=== PATIENT | male | born 1990 | race Caucasian/White ===

== ENCOUNTER 2017-05-08 10:12 | Emergency (ER) | payer MEDICAID ==
[2017-05-08] MEDS: NS 1,000 ML IV (10:48)
[2017-05-08] MEDS: KETOROLAC 30 MG/ML VIAL (J1885) IV (10:49)
[2017-05-08] MEDS: ONDANSETRON 4MG/2ML VIAL (J2405) IV (10:49)
[2017-05-08 10:53] LABS: BASO % 0.3 % (0.0-1.0); EOS # 0.1 10^3/uL (0.0-0.50); EOS % 1.2 % (0.0-3.0); HEMATOCRIT 42.7 % (42.0-52.0); HEMOGLOBIN 13.7 g/dl (14.0-18.0); IMMATURE GRANULOCYTE # 0.1 10^3/uL (0-0); IMMATURE GRANULOCYTE % 0.6 % (0-0); LYMPH # 2.4 10^3/uL (1.5-6.5); LYMPH % 21.1 % (24.0-44.0); MEAN CORPUSCULAR HEMOGLOBIN 26.3 pg (27.0-33.0); MEAN CORPUSCULAR HGB CONC 32.1 g/dl (32.0-36.5); MONO # 0.7 10^3/uL (0.0-0.8); MONO % 6.5 % (0.0-5.0); NEUTROPHILS # 7.9 10^3/uL (1.8-7.7); NEUTROPHILS % 70.3 % (36.0-66.0); PLATELET COUNT, AUTOMATED 210 10^3/uL (150-450); RED BLOOD COUNT 5.21 10^6/uL (4.30-6.10); RED CELL DISTRIBUTION WIDTH 13.2 % (11.5-14.5); WHITE BLOOD COUNT 11.3 10^3/uL (4.0-10.0)
[2017-05-08 10:58] LABS: KETONE, URINE AUTO RFX TRACE mg/dL (NEGATIVE); LEUKOCYTE ESTERASE UR AUTO RFX TRACE (NEGATIVE); MUCUS, URINE RFX SMALL (NEGATIVE); NITRITE, URINE AUTO RFX NEGATIVE (NEGATIVE); RBC, URINE AUTO RFX 9 /HPF (0-3); SPECIFIC GRAVITY UR AUTO RFX 1.018 (1.002-1.035); SQUAM EPITHELIAL CELL UR AURFX 0 /HPF (0-6); WBC, URINE AUTO RFX 31 /HPF (0-3)
[2017-05-08 11:17] LABS: ALBUMIN 4.6 GM/DL (3.2-5.2); ALBUMIN/GLOBULIN RATIO 1.39 (1.00-1.93); ALKALINE PHOSPHATASE 77 U/L (45-117); ALT/SGPT 50 U/L (12-78); AMYLASE 62 U/L (25-115); ANION GAP 7 MEQ/L (8-16); AST/SGOT 19 U/L (7-37); BILIRUBIN,DIRECT 0.1 MG/DL (0.0-0.2); BILIRUBIN,TOTAL 0.4 MG/DL (0.2-1.0); BLOOD UREA NITROGEN 16 MG/DL (7-18); CALCIUM LEVEL 9.1 MG/DL (8.5-10.1); CARBON DIOXIDE LEVEL 29 MEQ/L (21-32); CHLORIDE LEVEL 108 MEQ/L (98-107); CREATININE FOR GFR 1.06 MG/DL (0.70-1.30); GLOMERULAR FILTRATION RATE > 60.0 (>60); GLUCOSE, FASTING 139 MG/DL (70-105); LIPASE 132 U/L (73-393); POTASSIUM SERUM 3.6 MEQ/L (3.5-5.1); SODIUM LEVEL 144 MEQ/L (136-145); TOTAL PROTEIN 7.9 GM/DL (6.4-8.2)
[2017-05-08] MEDS ORDERED: ISOVUE-370 76% 100ML VIAL (Q9967) As Ordered (11:20)
== END 2017-05-08 12:31 | disposition home or self-care (01) ==
LOC: M ED 10:12
DX: N20.1 Calculus of ureter (principal); F90.9 Attention-deficit hyperactivity disorder, unspecified type; Z79.899 Other long term (current) drug therapy
CPT/HCPCS: J2405

== ENCOUNTER → 2017-05-12 | Outpatient (REF) | payer MEDICAID ==
[2017-05-12 17:59] LABS: APPEARANCE, URINE CLEAR (CLEAR); BACTERIA, URINE AUTO NEGATIVE (NEGATIVE); BILIRUBIN, URINE AUTO NEGATIVE (NEGATIVE); BLOOD, URINE BLOOD NEGATIVE (NEGATIVE); CALCIUM OXALATE CRYSTALS SMALL; COLOR, URINE YELLOW (YELLOW); GLUCOSE, URINE (UA) AUTO NEGATIVE (NEGATIVE); KETONE, URINE AUTO NEGATIVE (NEGATIVE); LEUKOCYTE ESTERASE, URINE AUTO NEGATIVE (NEGATIVE); MUCUS, URINE SMALL (NEGATIVE); NITRITE, URINE AUTO NEGATIVE (NEGATIVE); PROTEIN, URINE AUTO NEGATIVE (NEGATIVE); RBC, URINE AUTO 1 /HPF (0-3); SPECIFIC GRAVITY URINE AUTO 1.021 (1.002-1.035); SQUAMOUS EPITHELIAL CELL UR AU 0 /HPF (0-6); WBC, URINE AUTO 0 /HPF (0-3)
== END ==
LOC: M SMT 17:04
DX: N20.0 Calculus of kidney (principal)

== ENCOUNTER 2017-10-01 10:35 | Emergency (ER) | payer MEDICAID | END 2017-10-01 12:14 | disposition home or self-care (01) | LOC: M ED 10:35 | DX: S06.0X0A Concussion without loss of consciousness, initial encounter (principal); S10.93XA Contusion of unspecified part of neck, initial encounter; W10.8XXA Fall (on) (from) other stairs and steps, initial encounter; Y92.098 Other place in other non-institutional residence as the place of occurrence of the external cause; F90.9 Attention-deficit hyperactivity disorder, unspecified type; Z79.899 Other long term (current) drug therapy | CPT/HCPCS: 70450 ==

== ENCOUNTER 2018-01-01 12:10 | Emergency (ER) | payer MEDICAID | END 2018-01-01 14:09 | disposition home or self-care (01) | LOC: M ED 12:10 | DX: J20.9 Acute bronchitis, unspecified (principal); F90.9 Attention-deficit hyperactivity disorder, unspecified type; Z91.048 Other nonmedicinal substance allergy status; Z79.899 Other long term (current) drug therapy | CPT/HCPCS: 71046 ==

== ENCOUNTER 2019-02-28 19:50 | Emergency (ER) | payer MEDICAID, OTHER ==
[~2019-02-28] VITALS: Ht 180.3 cm; Wt 76.4 kg
[2019-02-28 19:50] VITALS: BP 154/88
[~2019-02-28 19:50] MED LIST: FLUO20CA8 PO; HYDR-3713 PO; IBUPOTC PO; LORA5SOL12 PO; VENTAER INH; ZITHTAB PO; ZOFR4TAB14 PO
[2019-02-28] MEDS ORDERED: ONDANSETRON 4MG/2ML VIAL (J2405) IV ONE (20:45)
[2019-02-28] MEDS ORDERED: KETOROLAC 30 MG/ML VIAL (J1885) IV ONE (20:45)
[2019-02-28 20:55] LABS: BASO % 0.2 % (0.0-1.0); EOS # 0.1 10^3/uL (0.0-0.5); EOS % 0.7 % (0.0-3.0); HEMATOCRIT 42.7 % (42.0-52.0); HEMOGLOBIN 13.9 g/dl (13.5-17.5); LYMPH # 2.3 10^3/uL (1.5-5.0); LYMPH % 16.1 % (24.0-44.0); MEAN CORPUSCULAR HEMOGLOBIN 27.3 pg (27.0-33.0); MEAN CORPUSCULAR HGB CONC 32.6 g/dl (32.0-36.5); MEAN CORPUSCULAR VOLUME 83.7 fl (80.0-96.0); MONO # 0.7 10^3/uL (0.0-0.8); MONO % 4.9 % (0.0-5.0); NEUTROPHILS % 77.3 % (36.0-66.0); PLATELET COUNT, AUTOMATED 219 10^3/uL (150-450); WHITE BLOOD COUNT 14.2 10^3/uL (4.0-10.0)
[2019-02-28 21:54] LABS: ALBUMIN 4.6 GM/DL (3.2-5.2); ALT/SGPT 38 U/L (12-78); BILIRUBIN,DIRECT 0.1 MG/DL (0.0-0.2); BILIRUBIN,TOTAL 0.3 MG/DL (0.2-1.0); BLOOD UREA NITROGEN 10 MG/DL (7-18); CALCIUM LEVEL 9.1 MG/DL (8.5-10.1); CARBON DIOXIDE LEVEL 30 MEQ/L (21-32); CHLORIDE LEVEL 106 MEQ/L (98-107); GLOMERULAR FILTRATION RATE > 60.0 (>60); GLUCOSE, FASTING 122 MG/DL (70-100); LIPASE 111 U/L (73-393); POTASSIUM SERUM 3.2 MEQ/L (3.5-5.1); SODIUM LEVEL 143 MEQ/L (136-145); TOTAL PROTEIN 7.5 GM/DL (6.4-8.2)
[2019-02-28] MEDS ORDERED: MORPHINE 4 MG/ML 1ML VIAL/SYRINGE (J2270) IV PRN (22:45)
[2019-02-28] MEDS ORDERED: METOCLOPRAMIDE INJ 10MG/2ML VIAL (J2765) IV ONE (22:45)
[2019-03-01] MEDS ORDERED: PERC5TAB12 PO (00:06)
[2019-03-01] MEDS ORDERED: CIPR-249 PO (00:06)
[2019-03-01] MEDS ORDERED: FLOM0.4C39 PO (00:06)
[2019-03-01] MEDS ORDERED: TAMSULOSIN 0.4 MG CAP PO ONE (00:15)
[2019-03-01] MEDS ORDERED: OXYCODONE/APAP 5MG/325MG(BULK FOR ED) 1 TABLET PO ONE (00:15)
== END 2019-03-01 00:27 | disposition home or self-care (01) ==
LOC: M ED 19:50
DX: N20.1 Calculus of ureter (principal); Z87.442 Personal history of urinary calculi
CPT/HCPCS: 74176; 80048; 80076; 81001; 83690; 85025; 87086; 96374; 96375; 99284; J1885; J2270; J2405; J2765

== ENCOUNTER 2019-03-04 14:42 | Emergency (ER) | payer OTHER ==
[~2019-03-04] VITALS: Ht 177.8 cm; Wt 77.9 kg
[~2019-03-04 14:42] MED LIST changes: +CIPR-249 PO; +FLOM0.4C39 PO; +PERC5TAB12 PO
[2019-03-04] MEDS ORDERED: KETOROLAC 30 MG/ML VIAL (J1885) IV ONE (15:15)
[2019-03-04] MEDS ORDERED: NS 1,000 ML IV ONE (15:15)
[2019-03-04] MEDS ORDERED: METOCLOPRAMIDE INJ 10MG/2ML VIAL (J2765) IV ONE (15:15)
[2019-03-04 15:39] LABS: BASO % 0.3 % (0.0-1.0); EOS # 0.1 10^3/uL (0.0-0.5); EOS % 0.9 % (0.0-3.0); HEMATOCRIT 42.3 % (42.0-52.0); HEMOGLOBIN 13.7 g/dl (13.5-17.5); LYMPH # 1.2 10^3/uL (1.5-5.0); LYMPH % 10.4 % (24.0-44.0); MEAN CORPUSCULAR HEMOGLOBIN 26.9 pg (27.0-33.0); MEAN CORPUSCULAR HGB CONC 32.4 g/dl (32.0-36.5); MEAN CORPUSCULAR VOLUME 83.1 fl (80.0-96.0); MONO % 9.1 % (0.0-5.0); NEUTROPHILS # 8.9 10^3/uL (1.5-8.5); NEUTROPHILS % 78.7 % (36.0-66.0); PLATELET COUNT, AUTOMATED 196 10^3/uL (150-450); RED BLOOD COUNT 5.09 10^6/uL (4.30-6.10); WHITE BLOOD COUNT 11.3 10^3/uL (4.0-10.0)
[2019-03-04] MEDS ORDERED: MORPHINE 4 MG/ML 1ML VIAL/SYRINGE (J2270) IV PRN (15:45)
[2019-03-04 15:58] LABS: ALBUMIN 4.2 GM/DL (3.2-5.2); BILIRUBIN,DIRECT 0.6 MG/DL (0.0-0.2); BILIRUBIN,TOTAL 1.4 MG/DL (0.2-1.0); CALCIUM LEVEL 9.5 MG/DL (8.5-10.1); CREATININE FOR GFR 1.66 MG/DL (0.70-1.30); GLOMERULAR FILTRATION RATE 53.6 (>60); POTASSIUM SERUM 3.8 MEQ/L (3.5-5.1); TOTAL PROTEIN 7.8 GM/DL (6.4-8.2)
--- NOTE | 2019-03-04 17:34 | REP ---
Renal ultrasound for flank pain: The right kidney measures 11.1 x 6.0 x 5.9 cm. Left kidney measures 11.7 x 6.3 x 7.3 cm. The kidneys are normal size. Renal cortical echogenicity is normal bilaterally. There is no right hydronephrosis. There is mild/moderate left hydronephrosis and hydroureter. There are multiple small echogenic foci within the kidneys bilaterally compatible with multiple renal calculi. There are no solid or cystic renal masses. The Bladder: The bladder is suboptimally distended and cannot be further evaluated. Impression: Multiple bilateral renal calculi. Left hydronephrosis and hydroureter. Electronically Signed by Chris Boles MD 03/04/2019 05:25 P
[2019-03-04] MEDS ORDERED: PERCOCET 5MG/325MG TAB PO ONE (18:15)
[2019-03-04 19:14] LABS: CALCIUM LEVEL 9.1 MG/DL (8.5-10.1); CREATININE FOR GFR 1.61 MG/DL (0.70-1.30); GLOMERULAR FILTRATION RATE 55.5 (>60); POTASSIUM SERUM 3.7 MEQ/L (3.5-5.1)
[2019-03-04] MEDS ORDERED: PERC5TAB12 PO ×2 (19:15→19:16)
[2019-03-04] MEDS ORDERED: REGL10TA6 PO (19:21)
[2019-03-04 19:37] VITALS: BP 163/97
--- NOTE | 2019-03-05 07:57 | ED PDOC ---
Post-Departure Follow-Up radiology report faxed to PCP, Noreen Scott MD Mar 05, 2019 07:57
== END 2019-03-04 19:42 | disposition home or self-care (01) ==
LOC: M ED 14:42
DX: N20.1 Calculus of ureter (principal); E80.6 Other disorders of bilirubin metabolism; N17.9 Acute kidney failure, unspecified; Z87.442 Personal history of urinary calculi; Z79.899 Other long term (current) drug therapy
CPT/HCPCS: 76775; 80048; 80076; 81001; 83690; 85025; 87086; 96361; 96374; 96375; 99284; J1885; J2270; J2765

== ENCOUNTER 2019-03-06 04:58 | Emergency (ER) | payer OTHER ==
[~2019-03-06] VITALS: Ht 175.3 cm; Wt 76.4 kg
[~2019-03-06 04:58] MED LIST changes: +REGL10TA6 PO
[2019-03-06] MEDS ORDERED: CIPR500T3 (05:06)
[2019-03-06] MEDS ORDERED: OXYC1TAB23 (05:06)
[2019-03-06] MEDS ORDERED: METO10TA2 (05:06)
[2019-03-06] MEDS ORDERED: TAMS1CAP17 (05:06)
[2019-03-06] MEDS ORDERED: NS 1,000 ML IV ONE (05:45)
[2019-03-06] MEDS ORDERED: NS 500 ML IV ONE (05:45)
--- NOTE | 2019-03-06 05:49 | REPVR ---
PROCEDURE INFORMATION: Exam: CT Abdomen And Pelvis Without Contrast Exam date and time: 03/06/2019 5:20 AM Clinical history: 28 years old, male; Abdominal pain; Flank; Other: bilat; Additional Info: BILATERAL FLANK PAIN TECHNIQUE: Imaging protocol: Computed tomography of the abdomen and pelvis without contrast. Radiation optimization: All CT scans at this facility use at least one of these dose optimization techniques: automated exposure control; mA and/or kV adjustment per patient size (includes targeted exams where dose is matched to clinical indication); or iterative reconstruction. COMPARISON: CT ABD PELVIS W/O CONTRAST 02/28/2019 8:42 PM FINDINGS: Liver: Normal. No mass. Gallbladder and bile ducts: Normal. No calcified stones. No ductal dilation. Pancreas: Normal. No ductal dilation. Spleen: Normal. No splenomegaly. Adrenals: Normal. No mass. Kidneys and ureters: No right hydronephrosis. Punctate non-obstructing stone in the right kidney. Moderate left hydronephrosis. 2 mm stone left ureterovesicular junction. Stomach and bowel: Unremarkable. No obstruction. No mucosal thickening. Negative for colonic diverticulitis. Appendix: Appendix is normal. Intraperitoneal space: Unremarkable. No free air. No significant fluid collection. Vasculature: Unremarkable. No abdominal aortic aneurysm. Lymph nodes: Unremarkable. No enlarged lymph nodes. Bladder: Unremarkable as visualized. Reproductive: Prostate is normal in size. Bones/joints: Unremarkable. No acute fracture. Soft tissues: Small umbilical hernia containing fat. There is no evidence of strangulation. IMPRESSION: 1. Acute obstructive left uropathy with ureterovesicular junction stone. Stone has progressed mildly from prior and is nearly passed. 2. Punctate nonobstructive stone in the right kidney. Electronically signed by: Aracely River On 03/06/2019 05:48:42 AM
[2019-03-06] MEDS ORDERED: MORPHINE 4 MG/ML 1ML VIAL/SYRINGE (J2270) IV ONE (06:00)
[2019-03-06 06:15] LABS: BASO % 0.4 % (0.0-1.0); EOS # 0.3 10^3/uL (0.0-0.5); EOS % 3.1 % (0.0-3.0); HEMATOCRIT 36.4 % (42.0-52.0); HEMOGLOBIN 11.8 g/dl (13.5-17.5); LYMPH # 1.2 10^3/uL (1.5-5.0); LYMPH % 13.4 % (24.0-44.0); MEAN CORPUSCULAR HEMOGLOBIN 27.1 pg (27.0-33.0); MEAN CORPUSCULAR HGB CONC 32.4 g/dl (32.0-36.5); MEAN CORPUSCULAR VOLUME 83.5 fl (80.0-96.0); MONO # 0.8 10^3/uL (0.0-0.8); MONO % 9.1 % (0.0-5.0); NEUTROPHILS # 6.7 10^3/uL (1.5-8.5); NEUTROPHILS % 73.2 % (36.0-66.0); PLATELET COUNT, AUTOMATED 219 10^3/uL (150-450); RED BLOOD COUNT 4.36 10^6/uL (4.30-6.10); WHITE BLOOD COUNT 9.1 10^3/uL (4.0-10.0)
[2019-03-06 06:35] LABS: BLOOD UREA NITROGEN 10 MG/DL (7-18); CALCIUM LEVEL 9.2 MG/DL (8.5-10.1); CARBON DIOXIDE LEVEL 31 MEQ/L (21-32); CHLORIDE LEVEL 104 MEQ/L (98-107); CREATININE FOR GFR 1.36 MG/DL (0.70-1.30); GLOMERULAR FILTRATION RATE > 60.0 (>60); GLUCOSE, FASTING 85 MG/DL (70-100); POTASSIUM SERUM 3.8 MEQ/L (3.5-5.1); SODIUM LEVEL 140 MEQ/L (136-145)
[2019-03-06] MEDS ORDERED: KETOROLAC 30 MG/ML VIAL (J1885) IV ONE (06:45)
[2019-03-06 07:15] LABS: APPEARANCE, URINE CLEAR (CLEAR); BACTERIA, URINE AUTO NEGATIVE (NEGATIVE); BILIRUBIN, URINE AUTO NEGATIVE (NEGATIVE); BLOOD, URINE BLOOD 1+ (NEGATIVE); CALCIUM OXALATE CRYSTALS SMALL; COLOR, URINE AMBER (YELLOW); GLUCOSE, URINE (UA) AUTO NEGATIVE (NEGATIVE); KETONE, URINE AUTO 2+ mg/dL (NEGATIVE); LEUKOCYTE ESTERASE, URINE AUTO TRACE (NEGATIVE); MUCUS, URINE SMALL (NEGATIVE); NITRITE, URINE AUTO NEGATIVE (NEGATIVE); PROTEIN, URINE AUTO 2+ mg/dL (NEGATIVE); RBC, URINE AUTO 20 /HPF (0-3); SPECIFIC GRAVITY URINE AUTO 1.028 (1.002-1.035); SQUAMOUS EPITHELIAL CELL UR AU 1 /HPF (0-6); WBC, URINE AUTO 15 /HPF (0-3)
[2019-03-06] MEDS ORDERED: PROM50TA4 PO (07:52)
[2019-03-06 07:58] VITALS: BP 153/90
== END 2019-03-06 07:50 | disposition home or self-care (01) ==
LOC: M ED 04:58
DX: N20.1 Calculus of ureter (principal); J30.2 Other seasonal allergic rhinitis; Z87.442 Personal history of urinary calculi; Z79.899 Other long term (current) drug therapy
CPT/HCPCS: 74176; 80048; 81001; 85025; 87086; 96361; 96374; 96375; 99284; J1885; J2270

== ENCOUNTER → 2019-03-08 | Outpatient (REF) | payer OTHER ==
[~2019-03-08] MED LIST changes: +CIPR500T3; +METO10TA2; +OXYC1TAB23; +PROM50TA4 PO; +TAMS1CAP17
== END ==
LOC: M SMT 17:05
PROVIDERS: ATTEND Nurse Practitioner Women's Health
DX: N13.2 Hydronephrosis with renal and ureteral calculous obstruction (principal)

== ENCOUNTER 2019-05-07 23:50 | Emergency (ER) | payer OTHER ==
[~2019-05-07] VITALS: Ht 188 cm; Wt 76.4 kg
[~2019-05-07 23:50] MED LIST changes: +FLUO20CA20 PO; -FLUO20CA8 PO
[2019-05-07] MEDS ORDERED: AMOX875T (23:56)
[2019-05-08] MEDS ORDERED: KETOROLAC 30 MG/ML VIAL (J1885) IV ONE (00:30)
[2019-05-08] MEDS ORDERED: ONDANSETRON 4MG/2ML VIAL (J2405) IV ONE (00:30)
[2019-05-08 00:33] LABS: BASO % 0.3 % (0.0-1.0); EOS # 0.2 10^3/uL (0.0-0.5); HEMATOCRIT 41.9 % (42.0-52.0); HEMOGLOBIN 13.2 g/dl (13.5-17.5); LYMPH # 2.2 10^3/uL (1.5-5.0); LYMPH % 32.6 % (24.0-44.0); MEAN CORPUSCULAR HEMOGLOBIN 26.6 pg (27.0-33.0); MEAN CORPUSCULAR HGB CONC 31.5 g/dl (32.0-36.5); MEAN CORPUSCULAR VOLUME 84.3 fl (80.0-96.0); MONO # 0.6 10^3/uL (0.0-0.8); MONO % 8.7 % (0.0-5.0); NEUTROPHILS # 3.6 10^3/uL (1.5-8.5); NEUTROPHILS % 54.8 % (36.0-66.0); PLATELET COUNT, AUTOMATED 217 10^3/uL (150-450); RED BLOOD COUNT 4.97 10^6/uL (4.30-6.10); WHITE BLOOD COUNT 6.6 10^3/uL (4.0-10.0)
--- NOTE | 2019-05-08 00:49 | REPVR ---
PROCEDURE INFORMATION: Exam: CT Abdomen And Pelvis Without Contrast Exam date and time: 05/08/2019 12:28 AM Age: 28 years old Clinical indication: Abdominal pain; Flank; Right; Additional info: Right flank pain/hx kidney stones TECHNIQUE: Imaging protocol: Computed tomography of the abdomen and pelvis without contrast. Radiation optimization: All CT scans at this facility use at least one of these dose optimization techniques: automated exposure control; mA and/or kV adjustment per patient size (includes targeted exams where dose is matched to clinical indication); or iterative reconstruction. COMPARISON: CT ABD PELVIS W/O CONTRAST 03/06/2019 5:18 AM FINDINGS: Liver: Normal. No mass. Gallbladder and bile ducts: Normal. No calcified stones. No ductal dilation. Pancreas: Normal. No ductal dilation. Spleen: Normal. No splenomegaly. Adrenals: Normal. No mass. Kidneys and ureters: Mild right hydroureteronephrosis to the level of a 4 mm calculus in the distal right ureter. Stomach and bowel: Unremarkable. No obstruction. No mucosal thickening. Appendix: No evidence of appendicitis. Intraperitoneal space: Unremarkable. No free air. No significant fluid collection. Vasculature: Unremarkable. No abdominal aortic aneurysm. Lymph nodes: Unremarkable. No enlarged lymph nodes. Bladder: Unremarkable as visualized. Reproductive: Unremarkable as visualized. Bones/joints: Unremarkable. No acute fracture. Soft tissues: Fat containing umbilical hernia. IMPRESSION: Mild right hydroureteronephrosis to the level of a 4 mm calculus in the distal right ureter. Electronically signed by: Sarabjit Auguste On 05/08/2019 00:49:23 AM
[2019-05-08 01:00] LABS: ALBUMIN 4.6 GM/DL (3.2-5.2); ALT/SGPT 46 U/L (12-78); BILIRUBIN,DIRECT 0.1 MG/DL (0.0-0.2); BILIRUBIN,TOTAL 0.6 MG/DL (0.2-1.0); BLOOD UREA NITROGEN 13 MG/DL (7-18); CALCIUM LEVEL 9.8 MG/DL (8.5-10.1); CARBON DIOXIDE LEVEL 28 MEQ/L (21-32); CHLORIDE LEVEL 108 MEQ/L (98-107); CREATININE FOR GFR 1.07 MG/DL (0.70-1.30); GLOMERULAR FILTRATION RATE > 60.0 (>60); GLUCOSE, FASTING 86 MG/DL (70-100); LIPASE 122 U/L (73-393); POTASSIUM SERUM 4.1 MEQ/L (3.5-5.1); SODIUM LEVEL 142 MEQ/L (136-145); TOTAL PROTEIN 7.5 GM/DL (6.4-8.2)
[2019-05-08] MEDS ORDERED: FLOM0.4C39 PO (01:12)
[2019-05-08] MEDS ORDERED: KETO10TAB PO (01:12)
[2019-05-08] MEDS ORDERED: NORCO 5/325MG TABLET (BULK FOR ED) PO ONE (01:15)
[2019-05-08 01:55] VITALS: BP 153/76
== END 2019-05-08 01:55 | disposition home or self-care (01) ==
LOC: M ED 23:50
DX: N20.1 Calculus of ureter (principal); F90.9 Attention-deficit hyperactivity disorder, unspecified type; F33.9 Major depressive disorder, recurrent, unspecified; Z79.2 Long term (current) use of antibiotics; Z91.048 Other nonmedicinal substance allergy status; Z87.448 Personal history of other diseases of urinary system
CPT/HCPCS: J2405; J1885; 74176; 83690; 80076; 80048; 85025; 81001; 87086; 96374; 96375; 99284

== ENCOUNTER 2021-02-24 20:53 | Emergency (ER) | payer OTHER ==
[~2021-02-24] VITALS: Ht 177.8 cm; Wt 87.9 kg
[~2021-02-24 20:53] MED LIST changes: +AMOX875T; +KETO10TAB PO; -LORA5SOL12 PO; +LORA5SOL44 PO
--- OUTSIDE RECORDS SUMMARY | 2021-02-24 20:58 | CCD ---
Author Author [facility] Organization [facility] Address Unknown Phone Unavailable Care Team Providers Care Spanish Professor Name Role Phone Maring, Michael PA Unavailable Unavailable Maring, Michael PA Unavailable Unavailable Maring, Michael PA Unavailable Unavailable Maring, Michael PA Unavailable Unavailable Maring, Michael PA Unavailable Unavailable Maring, Michael PA Unavailable Unavailable Maring, Michael PA Unavailable Unavailable Maring, Michael PA Unavailable Unavailable Maring, Michael PA Unavailable Unavailable Maring, Michael PA Unavailable Unavailable Maring, Michael PA Unavailable Unavailable Maring, Michael PA Unavailable Unavailable Maring, Michael PA Unavailable Unavailable Maring, Michael PA Unavailable Unavailable Maring, Michael PA Unavailable Unavailable Maring, Michael PA Unavailable Unavailable Osman DAVIES DPTalon Unavailable Unavailable Osman DAVIES DPTalon Unavailable Unavailable Osman DAVIES DPM Unavailable Unavailable Osman DAVIES DPM Unavailable Unavailable Osman DAVIES DPM Unavailable Unavailable Osman DAVIES DPM Unavailable Unavailable Osman DAVIES DPM Unavailable Unavailable Osman DAVIES DPM Unavailable Unavailable Osman DAVIES DPM Unavailable Unavailable MAJAK, R CONNOR DPM Unavailable Unavailable MAJAK, R CONNOR DPM Unavailable Unavailable MAJAK, R CONNOR DPM Unavailable Unavailable MAJAK, R CONNOR DPM Unavailable Unavailable MAJAK, R CONNOR DPM Unavailable Unavailable MAJAK, R CONNOR DPM Unavailable Unavailable MAJAK, R CONNOR DPM Unavailable Unavailable MAJAK, R CONNOR DPM Unavailable Unavailable MAJAK, R CONNOR DPM Unavailable Unavailable MAJAK, R CONNOR DPM Unavailable Unavailable MAJAK, R CONNOR DPM Unavailable Unavailable MAJAK, R CONNOR DPM Unavailable Unavailable MAJAK, R CONNOR DPM Unavailable Unavailable MAJAK, R CONNOR DPM Unavailable Unavailable MAJAK, R CONNOR DPM Unavailable Unavailable MAJAK, R CONNOR DPM Unavailable Unavailable MAJAK, R CONNOR DPM Unavailable Unavailable MAJAK, R CONNOR DPM Unavailable Unavailable MAJAK, R CONNOR DPM Unavailable Unavailable MAJAK, R CONNOR DPM Unavailable Unavailable MAJAK, R CONNOR DPM Unavailable Unavailable MAJAK, R CONNOR DPM Unavailable Unavailable Ever Hogan Unavailable [phone] SandipEver conn Unavailable [phone] Ever Hogan Unavailable [phone] Ever Hogan Unavailable [phone] Ever Hogan Unavailable [phone] Ever Hogan Unavailable [phone] Hilda Chadwick MD Unavailable Unavailable Hilda Chadwick MD Unavailable Unavailable Hilda Chadwick MD Unavailable Unavailable Hilda Chadwick MD Unavailable Unavailable Hilda Chadwick MD Unavailable Unavailable Hilda Chadwick MD Unavailable Unavailable Hilda Chadwick MD Unavailable Unavailable Hilda Chadwick MD Unavailable Unavailable Hilda Chadwick MD Unavailable Unavailable Hilda Chadwick MD Unavailable Unavailable Hilda Chadwick MD Unavailable Unavailable Hilda Chadwick MD Unavailable Unavailable Hilda Chadwick MD Unavailable Unavailable Hilda Chadwick MD Unavailable Unavailable Hilda Chadwick MD Unavailable Unavailable Hilda Chadwick MD Unavailable Unavailable Hilda Chadwick MD Unavailable Unavailable Hilda Chadwick MD Unavailable Unavailable Hilda Chadwick MD Unavailable Unavailable Hilda Chadwick MD Unavailable Unavailable Hilda Chadwick MD Unavailable Unavailable Hilda Chadwick MD Unavailable Unavailable Hilda Chadwick MD Unavailable Unavailable Hilda Chadwick MD Unavailable Unavailable Hilda Chadwick MD Unavailable Unavailable Re-disclosure Warning The records that you are about to access may contain information from federally-assisted alcohol or drug abuse programs. If such information is present, then the following federally mandated warning applies: This information has been disclosed to you from records protected by federal confidentiality rules (42 CFR part 2). The federal rules prohibit you from making any further disclosure of this information unless further disclosure is expressly permitted by the written consent of the person to whom it pertains or as otherwise permitted by 42 CFR part 2. A general authorization for the release of medical or other information is NOT sufficient for this purpose. The Federal rules restrict any use of the information to criminally investigate or prosecute any alcohol or drug abuse patient.The records that you are about to access may contain highly sensitive health information, the redisclosure of which is protected by Article 27-F of the [facility] Public Health law. If you continue you may have access to information: Regarding HIV / AIDS; Provided by facilities licensed or operated by the [facility] Office of Mental Health; or Provided by the [facility] Office for People With Developmental Disabilities. If such information is present, then the following [facility] mandated warning applies: This information has been disclosed to you from confidential records which are protected by state law. State law prohibits you from making any further disclosure of this information without the specific written consent of the person to whom it pertains, or as otherwise permitted by law. Any unauthorized further disclosure in violation of state law may result in a fine or senior care sentence or both. A general authorization for the release of medical or other information is NOT sufficient authorization for further disc losure. Encounters Encounter Providers Location Date Indications Data Source(s ) Outpatient Attender: CONNOR DAVIES [facility] 11/25 03:00:00 PM EDT [facility] ([facility] Outpatient Attender: Michael MARTINS 11/30/19 06:30:41 PM EDT - 11/29/2020 06:57:03 PM EDT [facility] ([facility] ) Outpatient Attender: Ever Hogan 10/10 08:38:34 AM EDT - 10/10/2020 09:16:21 AM EDT [facility] ([facility] ) Outpatient Attender: Joya Chadwick MD 0 07/23/2020 06:37:01 PM EDT - 07/23/2020 07:14:34 PM EDT [facility] ([facility]) Medications No Information Insurance Providers Payer name Policy type / Coverage type Policy ID Covered republican ID Covered republican's relationship to ragland Policy Ragland Plan Information [facility] [id number] SP [id number] Medicaid S [id number] S [id number] Managed Care - Community Plan [facility] P [id number] S [id number] Medicaid S [id number] S [id number] Managed Care [place] P [id number] S [id number] RPR- Needs Payer Match [id number] Self [id number] [place] [employer] [id number] Self [id number] MEDICAID M [id number] S [id number] Managed Care - Community Plan [facility] P [id number] S [id number] [facility] O [id number] S [id number] SELF PAY UNAVAILABLE UNAVAILA [facility] P [id number] O [id number] PABLO [id number] SP [id number] 000 [id number] [place] [id number] 18 [id number] PABLO CARE OF [facility] [place] [id number] 18 [id number] [place] [id number] S [id number] MEDICAID [id number] SP [id number] [facility] O [id number] S [id number] [facility] [id number] SP [id number] Problems, Conditions, and Diagnoses Code Display Name Description Problem Type Effective Dates Data Source(s) L60.0 Ingrowing nail Ingrowing nail Problem 12/29/2020 12:00: 00 AM EDT [facility] ([facility] M79.675 Pain in limb Pain in limb Problem 12/29/2020 12:00:00 A M EDT [facility] ([facility] Surgeries/Procedures Procedure Description Date Indications Data Source(s) AVULSION NAIL PLATE PARTIAL/COMPLETE SIMPLE 1 12/20/19 12:00:00 AM EDT [facility] ([facility] OFFICE OUTPATIENT NEW 30 MINUTES 2020 12:00:00 A M EDT [facility] Results ID Date Data Source [id number] 10/10/2020 07:41:00 AM EDT [facility] Name Value Range Interpretation Code Description Data Della rce(s) Supporting Document(s) SARS-CoV-2 RNA Resp Ql JAYASHREE+probe NOT DETECTED [facility] This lab was ordered by [facility] and re ported by JINNY Maldonado. Procedure Social History No Information Vital Signs ID Date Data Source UNK Name Value Range Interpretation Code Description Data Source(s) Body height 72 [in_i] 72 [in_i] [facility] ([facility] 6'0" Body weight 198.00 [lb_av] 198.00 [lb_av] MEDEN T ([facility] Systolic blood pressure 118 mm[Hg] 118 mm[Hg] M EDENT ([facility] Diastolic blood pressure 72 mm[Hg] 72 mm[Hg] [facility] ([facility] Heart rate 86 /min 86 /min [facility] ([facility] Body mass index (BMI) [Ratio] 26.9 kg/m2 26.9 k g/m2 [facility] ([facility]
--- OUTSIDE RECORDS SUMMARY | 2021-02-24 20:58 | CCD | Continuity of Care Document ---
Author Author Aries CABRAL DPM Organization Unknown Address [address] [place], [place] [address] Phone [phone] Care Team Providers Care Body Work Auto Trimmer Name Role Phone Eder Pickett LAKSHMI AUTM [phone] Problems Description No Information Available Social History Type Date Description Comments Sex Unknown ETOH Use Denies alcohol use Tobacco Use Start: Unknown Patient has never smoked Allergies, Adverse Reactions, Alerts Description No Known Drug Allergies Medications Description No Active Medications Immunizations Description No Information Available Vital Signs Date Vital Result Comment 2020 2:55pm Height 72 inches 6'0" Weight 198.00 lb BP Systolic 118 mmHg BP Diastolic 72 mmHg Heart Rate 86 /min BMI (Body Mass Index) 26.9 kg/m2 Results Description No Information Available Procedures Description No Information Available Medical Devices Description No Information Available Encounters Description No Information Available Assessments Description No Information Available Plan of Treatment No Information Available Functional Status Description No Information Available Mental Status Description No Information Available Referrals Refer to Dr Reason for Referral Status Appt Date Adams Cabral DPM Created [address] [place] [phone]
--- OUTSIDE RECORDS SUMMARY | 2021-02-24 20:58 | CCD | Continuity of Care Document ---
Author Author Aries CABRAL DPTalon Organization Unknown Address [address] [place] [address], [facility] [address] [place] [id number] Phone [phone] Care Team Providers Care Shop Service Technician Name Role Phone Eder Pickett LAKSHMI AUTM [phone] Problems Active Problems Provider Date Pain in limb Adams Cabral DPM Onset: 12/29/2020 Ingrowing nail Adams Cabral DPM Onset: 12/29/2020 Social History Type Date Description Comments Sex [...] kg/m2 Results Description No Information Available Procedures Date Code Description Status 2020 58121 Office/Outpatient [place] [facility] 30 -44 Minutes Completed 2020 50977 Avulsion Nail Plate Simple Singl e Completed Medical Devices Description No Information Available Encounters Type Date Location Provider Dx Diagnosis Office Visit 2020 3:00p [facility] Adams Cabral DPM M79.675 Pain in left toe(s) L60.0 Ingrowing nail Assessments Date Code Description Provider 2020 M79.675 Pain in left toe(s) Adams perdomo DPM 2020 L60.0 Ingrowing nail Adams Cabral DPM Plan of Treatment No Information Available Functional Status Description No Information Available Mental Status Description No Information Available Referrals Refer to Reason for Referral Status Appt Date Adams Cabral DPM Created [address] [facility], [address] [place] [id number] [phone]
[2021-02-24 23:40] LABS: APPEARANCE, URINE CLOUDY (CLEAR); BACTERIA, URINE AUTO 1+ (NEGATIVE); BILIRUBIN, URINE AUTO NEGATIVE (NEGATIVE); BLOOD, URINE BLOOD NEGATIVE (NEGATIVE); CALCIUM OXALATE CRYSTALS SMALL; COLOR, URINE YELLOW (YELLOW); GLUCOSE, URINE (UA) AUTO NEGATIVE (NEGATIVE); KETONE, URINE AUTO NEGATIVE (NEGATIVE); LEUKOCYTE ESTERASE, URINE AUTO 3+ (NEGATIVE); MUCUS, URINE LARGE (NEGATIVE); NITRITE, URINE AUTO POSITIVE (NEGATIVE); PROTEIN, URINE AUTO 1+ mg/dL (NEGATIVE); RBC, URINE AUTO 10 /HPF (0-3); SQUAMOUS EPITHELIAL CELL UR AU 1 /HPF (0-6); WBC, URINE AUTO TNTC /HPF (0-3)
--- OUTSIDE RECORDS SUMMARY | 2021-02-25 02:28 | CCD ---
Author Author [facility] Organization [facility] Address Unknown Phone Unavailable Care Team Providers Care Die Turner Name Role Phone Maring, Michael PA Unavailable [...] Maring, Michael PA Unavailable Unavailable Osman DAVIES DPM Unavailable Unavailable [...] R CONNOR DPM Unavailable Unavailable MAJAK, R CNONOR DPM Unavailable Unavailable MAJAK, R CONNOR DPM Unavailable Unavailable MAJAK, R CONNOR DPM Unavailable Unavailable MAJAK, R CONNOR DPM Unavailable Unavailable MAJAK, R CONNOR DPM Unavailable Unavailable MAJAK, R CONNOR DPM Unavailable Unavailable Ever Hogan Unavailable [phone] SandipEver conn Unavailable [phone] Ever Hogan Unavailable [phone] Ever Hogan Unavailable [phone] Ever Hogan Unavailable [phone] EdisonEver Unavailable [phone] Hilda Chadwick MD Unavailable Unavailable Hilda Chadwick [...] is protected by Article 27-F of the [facility] Public Health law. If you continue you may have access to information: Regarding HIV / AIDS; Provided by facilities licensed or operated by the [facility] Office of Mental Health; or Provided by the [facility] Office for People With Developmental Disabilities. If such information is present, then the following [facility] mandated warning applies: This information has been [...] law may result in a fine or fdc sentence or both. A general authorization for the release of medical or other information is NOT sufficient authorization for further disc losure. Encounters Encounter Providers Location Date Indications Data Source(s ) Outpatient Attender: CONNOR DAVIES [facility] 11/25 03:00:00 PM EDT [facility] ([facility] Outpatient Attender: Michael MARTINS 08/06/20 21 06:30:41 PM EDT - 11/29/2020 06:57:03 PM EDT [facility] ([facility] ) Outpatient Attender: Ever Hogan 10/10 08:38:34 AM EDT - 10/10/2020 09:16:21 AM EDT [facility] ([facility] ) Outpatient Attender: Joya Chadwick MD 0 07/23/2020 06:37:01 PM EDT - 07/23/2020 07:14:34 PM EDT [facility] ([facility]) Medications No Information Insurance Providers Payer name Policy type / Coverage type Policy ID Covered democrat ID Covered democrat's relationship to ragland Policy Ragland Plan Information [facility] [id number] SP [id number] Medicaid S [id number] S [id number] Managed Care - Community Plan [facility] P [id number] S [id number] Medicaid S [id number] S [id number] Managed Care [place] P [id number] S [id number] RPR- Needs Payer Match [id number] Self [id number] [place] [employer] [id number] Self [id number] MEDICAID M [id number] S [id number] Managed Care - Community Plan [facility] P [id number] S [id number] [facility] O [id number] S [id number] SELF PAY UNAVAILABLE UNAVAILA [facility] P [id number] O [id number] ALBA [id number] SP [id number] 000 [id number] [facility] [place] [id number] 18 [id number] [place] [id number] 18 [id number] [place] O [id number] S [id number] MEDICAID [id number] SP [id number] [facility] O [id number] S [id number] [facility] [id number] SP [id number] Problems, Conditions, and Diagnoses Code Display Name Description Problem Type Effective Dates Data Source(s) L60.0 Ingrowing nail Ingrowing nail Problem 12/29/2020 12:00: 00 AM EDT [facility] ([facility] M79.675 Pain in limb Pain in limb Problem 12/29/2020 12:00:00 A M EDT [facility] ([facility] Surgeries/Procedures Procedure Description Date Indications Data Source(s) AVULSION NAIL PLATE PARTIAL/COMPLETE SIMPLE 1 12/20/19 12:00:00 AM EDT [facility] ([facility] OFFICE OUTPATIENT NEW 30 MINUTES 2020 12:00:00 A M EDT [facility] Results ID Date Data Source [id number] 10/10/2020 07:41:00 AM EDT [facility] Name Value Range Interpretation Code Description Data Della rce(s) Supporting Document(s) SARS-CoV-2 RNA Resp Ql JAYASHREE+probe NOT DETECTED [facility] This lab was ordered by [place] and re ported by [facility]. Procedure Social History No Information Vital Signs [...] 26.9 kg/m2 26.9 k g/m2 [facility] ([facility]
[2021-02-25] MEDS ORDERED: KETOROLAC 30 MG/ML 1ML VIAL IV ONE (03:40)
[2021-02-25 03:59] LABS: BASO % 0.4 % (0.0-1.0); EOS # 0.3 10^3/uL (0.0-0.5); EOS % 3.9 % (0.0-3.0); HEMATOCRIT 43.6 % (42.0-52.0); HEMOGLOBIN 13.9 g/dl (13.5-17.5); LYMPH # 3.1 10^3/uL (1.5-5.0); LYMPH % 40.1 % (24.0-44.0); MEAN CORPUSCULAR HEMOGLOBIN 26.6 pg (27.0-33.0); MEAN CORPUSCULAR HGB CONC 31.9 g/dl (32.0-36.5); MEAN CORPUSCULAR VOLUME 83.5 fl (80.0-96.0); MONO # 0.7 10^3/uL (0.0-0.8); MONO % 8.8 % (2.0-8.0); NEUTROPHILS # 3.6 10^3/uL (1.5-8.5); NEUTROPHILS % 46.2 % (36.0-66.0); PLATELET COUNT, AUTOMATED 225 10^3/uL (150-450); RED BLOOD COUNT 5.22 10^6/uL (4.30-6.10); WHITE BLOOD COUNT 7.8 10^3/uL (4.0-10.0)
[2021-02-25 04:29] LABS: BLOOD UREA NITROGEN 11 MG/DL (7-18); CALCIUM LEVEL 9.6 MG/DL (8.5-10.1); CARBON DIOXIDE LEVEL 29 MEQ/L (21-32); CHLORIDE LEVEL 111 MEQ/L (98-107); CREATININE FOR GFR 0.98 MG/DL (0.70-1.30); GLOMERULAR FILTRATION RATE > 60.0 (>60); GLUCOSE, FASTING 100 MG/DL (70-100); POTASSIUM SERUM 4.7 MEQ/L (3.5-5.1); SODIUM LEVEL 142 MEQ/L (136-145)
--- NOTE | 2021-02-25 05:39 | REPVR ---
PROCEDURE INFORMATION: Exam: CT Abdomen And Pelvis Without Contrast Exam date and time: 02/25/2021 4:10 AM Age: 30 years old Clinical indication: Abdominal pain; Flank; Other: Bilat; Additional info: Bilateral flank pain rule out nephrolithiasis TECHNIQUE: Imaging protocol: Computed tomography of the abdomen and pelvis without contrast. Radiation optimization: All CT scans at this facility use at least one of these dose optimization techniques: automated exposure control; mA and/or kV adjustment per patient size (includes targeted exams where dose is matched to clinical indication); or iterative reconstruction. COMPARISON: CT ABD PELVIS W/O CONTRAST 05/08/2019 12:26 AM FINDINGS: Lungs: The visualized portions of the lung bases are normal. Liver: The unenhanced liver appears unremarkable. Gallbladder and bile ducts: The gallbladder appears partially contracted. No stones are identified. No biliary ductal dilation is seen. Pancreas: The pancreas appears unremarkable. No pancreatic ductal dilation identified. Spleen: The unenhanced spleen appears unremarkable. Adrenal glands: The adrenal glands are normal. Kidneys and ureters: The unenhanced kidneys appear unremarkable. There are no ureteral stones or hydronephrosis. Stomach and bowel: The small bowel appears unremarkable. There is no dilation or thickening of the colon. Appendix: A normal appendix is identified. Intraperitoneal space: There is no evidence of free intraperitoneal or pelvic fluid. There is no free intraperitoneal air. Vasculature: No aortic aneurysm. Lymph nodes: No lymphadenopathy is seen. Urinary bladder: The bladder is mostly collapsed. No bladder stones are identified. Reproductive: The prostate gland appears normal. Bones/joints: No suspicious osseous lesions. No acute fractures. Soft tissues: Unremarkable. IMPRESSION: 1. No nephrolithiasis, ureterolithiasis, or hydronephrosis. 2. Normal appearance of the appendix. Electronically signed by: Julissa River On 02/25/2021 05:38:54 AM
[2021-02-25 06:18] VITALS: BP 128/82
[2021-02-25] MEDS ORDERED: CEFP200T PO (06:26)
[2021-02-25 07:47] LABS: GC DNA AMPLIFICATION NEGATIVE (NEGATIVE)
== END 2021-02-25 06:47 | disposition home or self-care (01) ==
LOC: M ED 20:53
DX: N39.0 Urinary tract infection, site not specified (principal); Z87.442 Personal history of urinary calculi
CPT/HCPCS: 74176; 80048; 81001; 85025; 87661; 96374; 99284; J1885

== ENCOUNTER 2023-02-13 04:41 | Emergency (ER) | payer OTHER ==
[~2023-02-13] VITALS: Ht 172.7 cm; Wt 88.1 kg
[~2023-02-13 04:41] MED LIST changes: +CEFP200T PO; +FLUO-96 PO; -FLUO20CA20 PO
[2023-02-13] MEDS ORDERED: ONDANSETRON 4MG 2ML VIAL IV ONE (05:05)
[2023-02-13] MEDS ORDERED: NS 1,000 ML IV ONE (05:05)
[2023-02-13] MEDS ORDERED: KETOROLAC 30 MG/ML 1ML VIAL IV ONE (05:05)
[2023-02-13 05:29] LABS: BASO % 0.3 % (0.0-1.0); EOS # 0.2 10^3/uL (0.0-0.5); EOS % 1.7 % (0.0-3.0); HEMATOCRIT 44.3 % (42.0-52.0); HEMOGLOBIN 14.9 g/dl (13.5-17.5); LYMPH # 2.4 10^3/uL (1.5-5.0); LYMPH % 25.3 % (24.0-44.0); MEAN CORPUSCULAR HEMOGLOBIN 27.2 pg (27.0-33.0); MEAN CORPUSCULAR HGB CONC 33.6 g/dl (32.0-36.5); MEAN CORPUSCULAR VOLUME 80.8 fl (80.0-96.0); MONO # 0.7 10^3/uL (0.0-0.8); MONO % 7.6 % (2.0-8.0); NEUTROPHILS % 64.5 % (36.0-66.0); PLATELET COUNT, AUTOMATED 269 10^3/uL (150-450); RED BLOOD COUNT 5.48 10^6/uL (4.30-6.10); WHITE BLOOD COUNT 9.3 10^3/uL (4.0-10.0)
[2023-02-13] MEDS ORDERED: LIDOCAINE 1% SDV 5ML VIAL DILUENT ONE (08:15)
[2023-02-13] MEDS ORDERED: cefTRIAXone 500MG VIAL IM ONE (08:15)
[2023-02-13] MEDS ORDERED: DOXYCYCLINE HYCLATE 100MG TABLET PO ONE (08:15)
[2023-02-13] MEDS ORDERED: DOXY-443 PO (08:23)
[2023-02-13 08:29] VITALS: BP 118/73; TEMP 97.2; O2SAT 98
[2023-02-13 08:48] LABS: GC DNA AMPLIFICATION NEGATIVE (NEGATIVE)
[2023-02-14] MEDS ORDERED: MIRA3350 PO (14:29)
[2023-02-14] MEDS ORDERED: ACET325C5 PO (14:29)
[2023-02-14] MEDS ORDERED: IBUP80TA PO (14:29)
[2023-02-14] MEDS ORDERED: BACT800T5 PO (14:29)
[2023-02-14] MEDS ORDERED: PERC5TAB12 PO (14:29)
== END 2023-02-13 08:45 | disposition home or self-care (01) ==
LOC: M ED 04:41
DX: N45.1 Epididymitis (principal); K65.9 Peritonitis, unspecified; F32.A Depression, unspecified; Z87.442 Personal history of urinary calculi; Z79.1 Long term (current) use of non-steroidal anti-inflammatories (NSAID); Z79.2 Long term (current) use of antibiotics; Z79.899 Other long term (current) drug therapy
CPT/HCPCS: 74176; 76870; 81001; 85025; 87086; 87810; 87850; 93041; 93976; 96361; 96372; 96374; 99284; J0696; J1885; J2405

== ENCOUNTER 2023-02-14 09:50 | Emergency (ER) | payer OTHER ==
[~2023-02-14] VITALS: Ht 172.7 cm; Wt 93.2 kg
[~2023-02-14 09:50] MED LIST changes: +DOXY-443 PO
[2023-02-14] MEDS ORDERED: NS 1,000 ML IV ONE (11:05)
[2023-02-14 11:18] LABS: BASO % 0.2 % (0.0-1.0); EOS % 0.1 % (0.0-3.0); HEMATOCRIT 41.4 % (42.0-52.0); HEMOGLOBIN 13.9 g/dl (13.5-17.5); LYMPH # 1.8 10^3/uL (1.5-5.0); LYMPH % 12.4 % (24.0-44.0); MEAN CORPUSCULAR HEMOGLOBIN 27.1 pg (27.0-33.0); MEAN CORPUSCULAR HGB CONC 33.6 g/dl (32.0-36.5); MEAN CORPUSCULAR VOLUME 80.9 fl (80.0-96.0); MONO # 1.5 10^3/uL (0.0-0.8); MONO % 10.2 % (2.0-8.0); NEUTROPHILS # 10.8 10^3/uL (1.5-8.5); NEUTROPHILS % 76.5 % (36.0-66.0); PLATELET COUNT, AUTOMATED 221 10^3/uL (150-450); RED BLOOD COUNT 5.12 10^6/uL (4.30-6.10); WHITE BLOOD COUNT 14.2 10^3/uL (4.0-10.0)
[2023-02-14] MEDS ORDERED: KETOROLAC 30 MG/ML 1ML VIAL IV ONE (11:30)
[2023-02-14] MEDS ORDERED: ISOVUE-370 76% 100ML VIAL As Ordered ONE (11:34)
[2023-02-14] MEDS ORDERED: HYDROMORPHONE HCL 0.5 MG/ 0.5 ML SYRINGE IV ONE (13:10)
[2023-02-14] MEDS ORDERED: MIRA3350 PO (14:29)
[2023-02-14] MEDS ORDERED: ACET325C5 PO (14:29)
[2023-02-14] MEDS ORDERED: PERC5TAB12 PO (14:29)
[2023-02-14] MEDS ORDERED: IBUP80TA PO (14:29)
[2023-02-14] MEDS ORDERED: BACT800T5 PO (14:29)
[2023-02-14 14:34] VITALS: BP 137/68; TEMP 99; O2SAT 99
== END 2023-02-14 14:43 | disposition home or self-care (01) ==
LOC: M ED 09:50
DX: N45.1 Epididymitis (principal); K59.00 Constipation, unspecified; Z87.442 Personal history of urinary calculi; Z79.1 Long term (current) use of non-steroidal anti-inflammatories (NSAID); Z79.2 Long term (current) use of antibiotics; Z79.899 Other long term (current) drug therapy
CPT/HCPCS: 74177; 76870; 80047; 85025; 96374; 96375; 99283; J1170; J1885; Q9967

== ENCOUNTER 2023-03-22 11:12 | Emergency (ER) | payer OTHER ==
[~2023-03-22] VITALS: Ht 180.3 cm; Wt 86.6 kg
[~2023-03-22 11:12] MED LIST changes: +ACET325C5 PO; +BACT800T5 PO; +IBUP80TA PO; +MIRA3350 PO
[2023-03-22] MEDS ORDERED: BUPR150T12 (11:37)
[2023-03-22 15:40] VITALS: BP 114/76; TEMP 98.8; O2SAT 100
[2023-03-22] MEDS ORDERED: IBUPROFEN 800 MG TAB PO ONE (15:50)
[2023-03-22] MEDS ORDERED: ACETAMINOPHEN TAB 650MG DOSE (2X325MG) PO ONE (15:50)
[2023-03-22] MEDS ORDERED: BACT800T5 PO (16:27)
[2023-03-22 17:08] LABS: CHLAMYDIA DNA AMPLIFICATION NEGATIVE (NEGATIVE); GC DNA AMPLIFICATION NEGATIVE (NEGATIVE)
== END 2023-03-22 16:33 | disposition home or self-care (01) ==
LOC: M ED 11:12
DX: N45.1 Epididymitis (principal); N43.3 Hydrocele, unspecified; Z79.52 Long term (current) use of systemic steroids; Z79.899 Other long term (current) drug therapy

== ENCOUNTER 2023-05-30 11:44 | Emergency (ER) | payer OTHER ==
[~2023-05-30] VITALS: Ht 177.8 cm; Wt 87.7 kg
[~2023-05-30 11:44] MED LIST changes: +BUPR150T12
[2023-05-30 13:04] LABS: HEMATOCRIT 44.2 % (42.0-52.0); HEMOGLOBIN 14.3 g/dl (13.5-17.5); MEAN CORPUSCULAR HEMOGLOBIN 26.6 pg (27.0-33.0); MEAN CORPUSCULAR HGB CONC 32.4 g/dl (32.0-36.5); MEAN CORPUSCULAR VOLUME 82.2 fl (80.0-96.0); PLATELET COUNT, AUTOMATED 211 10^3/uL (150-450); RED BLOOD COUNT 5.38 10^6/uL (4.30-6.10); WHITE BLOOD COUNT 18.3 10^3/uL (4.0-10.0)
[2023-05-30] MEDS ORDERED: cefTRIAXone 500MG VIAL IM ONE (14:05)
[2023-05-30] MEDS ORDERED: LIDOCAINE 1% SDV 5ML VIAL DILUENT ONE (14:05)
[2023-05-30] MEDS ORDERED: KETOROLAC 30 MG/ML 1ML VIAL IV ONE (14:05)
[2023-05-30] MEDS ORDERED: BACT800T5 PO (14:08)
[2023-05-30] MEDS ORDERED: KETO10TAB PO (14:08)
[2023-05-30 14:09] VITALS: BP 133/83; TEMP 97.5; O2SAT 98
== END 2023-05-30 14:34 | disposition home or self-care (01) ==
LOC: M ED 11:44
DX: N45.2 Orchitis (principal); Z87.442 Personal history of urinary calculi; Z79.899 Other long term (current) drug therapy
CPT/HCPCS: 74176; 76870; 80047; 81001; 85027; 87086; 93976; 96372; 96374; 99284; J0696; J1885

== ENCOUNTER → 2023-06-14 | Outpatient (REF) | payer OTHER ==
[2023-06-14 13:56] LABS: APPEARANCE, URINE CLOUDY (CLEAR); BACTERIA, URINE AUTO NEGATIVE (NEGATIVE); BILIRUBIN, URINE AUTO NEGATIVE (NEGATIVE); BLOOD, URINE BLOOD 1+ (NEGATIVE); COLOR, URINE AMBER (YELLOW); GLUCOSE, URINE (UA) AUTO NEGATIVE (NEGATIVE); KETONE, URINE AUTO NEGATIVE (NEGATIVE); LEUKOCYTE ESTERASE, URINE AUTO 1+ (NEGATIVE); MUCUS, URINE SMALL (NEGATIVE); NITRITE, URINE AUTO NEGATIVE (NEGATIVE); PROTEIN, URINE AUTO 1+ mg/dL (NEGATIVE); RBC, URINE AUTO 8 /HPF (0-3); SPECIFIC GRAVITY URINE AUTO 1.024 (1.002-1.035); SQUAMOUS EPITHELIAL CELL UR AU 3 /HPF (0-6); UROBILINOGEN, URINE AUTO 0.2 mg/dL (0.0-2.0); WBC, URINE AUTO 24 /HPF (0-3)
== END ==
LOC: M SMT 12:46
PROVIDERS: ATTEND Urology
DX: R30.0 Dysuria (principal)

== ENCOUNTER → 2023-06-16 | Outpatient (REF) | payer OTHER ==
[2023-06-16 18:25] LABS: AMORPHOUS SEDIMENT SMALL (NEGATIVE); APPEARANCE, URINE TURBID (CLEAR); BACTERIA, URINE AUTO NEGATIVE (NEGATIVE); BILIRUBIN, URINE AUTO NEGATIVE (NEGATIVE); BLOOD, URINE BLOOD NEGATIVE (NEGATIVE); COLOR, URINE YELLOW (YELLOW); GLUCOSE, URINE (UA) AUTO NEGATIVE (NEGATIVE); KETONE, URINE AUTO NEGATIVE (NEGATIVE); LEUKOCYTE ESTERASE, URINE AUTO NEGATIVE (NEGATIVE); MUCUS, URINE MODERATE (NEGATIVE); NITRITE, URINE AUTO NEGATIVE (NEGATIVE); PROTEIN, URINE AUTO 1+ mg/dL (NEGATIVE); RBC, URINE AUTO 1 /HPF (0-3); SPECIFIC GRAVITY URINE AUTO 1.028 (1.002-1.035); SQUAMOUS EPITHELIAL CELL UR AU 2 /HPF (0-6); UROBILINOGEN, URINE AUTO 0.2 mg/dL (0.0-2.0); WBC, URINE AUTO 3 /HPF (0-3)
== END ==
LOC: M SMT 17:12
PROVIDERS: ATTEND Urology
DX: R30.0 Dysuria (principal)

== ENCOUNTER 2023-08-31 07:52 | Emergency (ER) | payer OTHER ==
[~2023-08-31] VITALS: Ht 180.3 cm; Wt 87.3 kg
[~2023-08-31 07:52] MED LIST changes: +DOXY-323 PO; -DOXY-443 PO
[2023-08-31] MEDS ORDERED: IBUP80TA (08:05)
[2023-08-31 08:35] LABS: BASO % 0.4 % (0.0-1.0); EOS # 0.2 10^3/uL (0.0-0.5); EOS % 2.4 % (0.0-3.0); HEMATOCRIT 45.7 % (42.0-52.0); HEMOGLOBIN 14.7 g/dl (13.5-17.5); LYMPH # 2.1 10^3/uL (1.5-5.0); LYMPH % 27.5 % (24.0-44.0); MEAN CORPUSCULAR HEMOGLOBIN 26.5 pg (27.0-33.0); MEAN CORPUSCULAR HGB CONC 32.2 g/dl (32.0-36.5); MEAN CORPUSCULAR VOLUME 82.3 fl (80.0-96.0); MONO # 0.6 10^3/uL (0.0-0.8); MONO % 7.6 % (2.0-8.0); NEUTROPHILS # 4.8 10^3/uL (1.5-8.5); NEUTROPHILS % 61.2 % (36.0-66.0); PLATELET COUNT, AUTOMATED 274 10^3/uL (150-450); RED BLOOD COUNT 5.55 10^6/uL (4.30-6.10); WHITE BLOOD COUNT 7.8 10^3/uL (4.0-10.0)
[2023-08-31 09:05] LABS: BLOOD UREA NITROGEN 10 MG/DL (9-23); CALCIUM LEVEL 9.3 MG/DL (8.5-10.1); CARBON DIOXIDE LEVEL 30 MMOL/L (20-31); CHLORIDE LEVEL 109 MMOL/L (98-107); CREATININE FOR GFR 0.94 MG/DL (0.70-1.30); GLOMERULAR FILTRATION RATE > 60.0 (>60); GLUCOSE, FASTING 95 MG/DL (60-100); POTASSIUM SERUM 4.2 MMOL/L (3.5-5.1); SODIUM LEVEL 144 MMOL/L (136-145)
[2023-08-31] MEDS ORDERED: AMOX875T2 PO (13:47)
[2023-08-31 14:30] VITALS: BP 137/86; TEMP 97.7; O2SAT 98
== END 2023-08-31 14:20 | disposition home or self-care (01) ==
LOC: M ED 07:52
DX: N39.0 Urinary tract infection, site not specified (principal); R31.9 Hematuria, unspecified; Z87.442 Personal history of urinary calculi; Z79.899 Other long term (current) drug therapy

== ENCOUNTER → 2023-09-15 | Outpatient (REF) | payer OTHER ==
[~2023-09-15] MED LIST changes: +AMOX875T2 PO; +IBUP80TA
[2023-09-15 13:15] LABS: APPEARANCE, URINE TURBID (CLEAR); BACTERIA, URINE AUTO NEGATIVE (NEGATIVE); BILIRUBIN, URINE AUTO NEGATIVE (NEGATIVE); BLOOD, URINE BLOOD 1+ (NEGATIVE); COLOR, URINE AMBER (YELLOW); GLUCOSE, URINE (UA) AUTO NEGATIVE (NEGATIVE); KETONE, URINE AUTO NEGATIVE (NEGATIVE); LEUKOCYTE ESTERASE, URINE AUTO 2+ (NEGATIVE); MUCUS, URINE MODERATE (NEGATIVE); NITRITE, URINE AUTO NEGATIVE (NEGATIVE); PROTEIN, URINE AUTO 2+ mg/dL (NEGATIVE); RBC, URINE AUTO 15 /HPF (0-3); SPECIFIC GRAVITY URINE AUTO 1.025 (1.002-1.035); SQUAMOUS EPITHELIAL CELL UR AU 5 /HPF (0-6); TRANSITIONAL EPITHELIAL AUTO 1 /HPF; WBC, URINE AUTO 69 /HPF (0-3)
== END ==
LOC: M SMT 12:30
PROVIDERS: ATTEND Nurse Practitioner Family
DX: R31.0 Gross hematuria (principal)

== ENCOUNTER 2023-12-19 18:45 | Observation (INO) | payer OTHER ==
[~2023-12-19] VITALS: Ht 180.3 cm; Wt 90.9 kg
[2023-12-19] MEDS: IBUPROFEN 800 MG TAB PO ONE (19:45)
[2023-12-19 19:46] LABS: BASO % 0.1 % (0.0-1.0); HEMATOCRIT 41.8 % (42.0-52.0); HEMOGLOBIN 13.8 g/dl (13.5-17.5); LYMPH # 0.9 10^3/uL (1.5-5.0); LYMPH % 4.5 % (24.0-44.0); MEAN CORPUSCULAR VOLUME 81.8 fl (80.0-96.0); MONO # 1.5 10^3/uL (0.0-0.8); MONO % 7.8 % (2.0-8.0); NEUTROPHILS # 17.1 10^3/uL (1.5-8.5); NEUTROPHILS % 86.3 % (36.0-66.0); PLATELET COUNT, AUTOMATED 186 10^3/uL (150-450); RED BLOOD COUNT 5.11 10^6/uL (4.30-6.10); WHITE BLOOD COUNT 19.8 10^3/uL (4.0-10.0)
[2023-12-19] MEDS: PIPERACILLIN/TAZOBACTAM SOD 4.5 GM in D5W MINI-BAG PLUS 50 ML IV ONE (20:19)
[2023-12-19] MEDS: ACETAMINOPHEN TAB 650MG DOSE (2X325MG) PO ONE (20:19)
[2023-12-19] MEDS: NS 2,540 ML in IV 1 EA IV ONE (20:19)
[2023-12-19 21:09] LABS: LIPASE 23 U/L (12-53)
[2023-12-19 21:13] LABS: ALBUMIN 3.4 G/DL (3.2-5.2); ALKALINE PHOSPHATASE 69 U/L (46-116); ALT/SGPT 31 U/L (7.0-40); AST/SGOT 25 U/L (<34); BILIRUBIN,DIRECT 0.9 MG/DL (<0.4); BLOOD UREA NITROGEN 11 MG/DL (9-23); CALCIUM LEVEL 8.3 MG/DL (8.5-10.1); CARBON DIOXIDE LEVEL 23 MMOL/L (20-31); CHLORIDE LEVEL 106 MMOL/L (98-107); GLOMERULAR FILTRATION RATE > 60.0 (>60); GLUCOSE, FASTING 98 MG/DL (60-100); POTASSIUM SERUM 4.2 MMOL/L (3.5-5.1); SODIUM LEVEL 136 MMOL/L (136-145); TOTAL PROTEIN 6.3 G/DL (5.7-8.2)
[2023-12-19] MEDS: ONDANSETRON 4MG 2ML VIAL IV ONE (21:35)
[2023-12-19] MEDS: MORPHINE 4 MG/ML 1ML VIAL IV PRN (21:35)
[2023-12-19 22:33] LABS: Trichomonas vaginalis (AMP) NOT DETECTED (NEGATIVE)
[2023-12-19 22:57] LABS: GC DNA AMPLIFICATION NEGATIVE (NEGATIVE)
[2023-12-20] MEDS ORDERED: ACET-897 PO (01:23)
[2023-12-20] MEDS ORDERED: HOME MED LIST COMPLETE! XX SCH (01:25)
[2023-12-20] MEDS: cefTRIAXone SOD 1 GM in D5W MINI-BAG PLUS 50 ML IV SCH (02:12)
[2023-12-20] MEDS: DOXYCYCLINE HYCLATE 100MG TABLET PO SCH (02:12)
[2023-12-20 03:37] LABS: HIV 1&2 SCREEN NEGATIVE (NEGATIVE)
[2023-12-20 08:30] VITALS: BP 123/78; TEMP 99.1; O2SAT 98
[2023-12-20 12:00] VITALS: BP 132/77; TEMP 100.4; O2SAT 99
[2023-12-20] MEDS: ONDANSETRON 4MG 2ML VIAL IV PRN (12:23)
[2023-12-20] MEDS: MOM 30ML SUSPENSION UDC PO PRN (12:23)
[2023-12-20] MEDS: PIPERACILLIN/TAZOBACTAM SOD 3.375 GM in D5W MINI-BAG PLUS 50 ML IV SCH (12:25)
[2023-12-20] MEDS: ACETAMINOPHEN TAB 650MG DOSE (2X325MG) PO PRN (12:25)
[2023-12-20 20:17] VITALS: BP 115/78; TEMP 102.7; O2SAT 93
[2023-12-20] MEDS: ACETAMINOPHEN 500 MG TAB PO PRN (20:24)
[2023-12-20 22:03] VITALS: TEMP 101
[2023-12-20 22:50] VITALS: TEMP 100
[2023-12-21 04:47] VITALS: BP 105/60; TEMP 101.1; O2SAT 98
[2023-12-21] MEDS: KETOROLAC 30 MG/ML 1ML VIAL IV PRN (04:59)
[2023-12-21 06:12] LABS: HEMATOCRIT 39.4 % (42.0-52.0); HEMOGLOBIN 12.9 g/dl (13.5-17.5); MEAN CORPUSCULAR HEMOGLOBIN 26.7 pg (27.0-33.0); MEAN CORPUSCULAR HGB CONC 32.7 g/dl (32.0-36.5); MEAN CORPUSCULAR VOLUME 81.6 fl (80.0-96.0); PLATELET COUNT, AUTOMATED 189 10^3/uL (150-450); RED BLOOD COUNT 4.83 10^6/uL (4.30-6.10); WHITE BLOOD COUNT 20.5 10^3/uL (4.0-10.0)
[2023-12-21 06:31] LABS: ALBUMIN 3.2 G/DL (3.2-5.2); ALKALINE PHOSPHATASE 92 U/L (46-116); ALT/SGPT 22 U/L (7.0-40); AST/SGOT 13 U/L (<34); BILIRUBIN,TOTAL 1.5 MG/DL (0.3-1.2); BLOOD UREA NITROGEN 11 MG/DL (9-23); CALCIUM LEVEL 8.9 MG/DL (8.5-10.1); CARBON DIOXIDE LEVEL 25 MMOL/L (20-31); CHLORIDE LEVEL 107 MMOL/L (98-107); CREATININE FOR GFR 0.93 MG/DL (0.70-1.30); GLOMERULAR FILTRATION RATE > 60.0 (>60); GLUCOSE, FASTING 92 MG/DL (60-100); POTASSIUM SERUM 3.9 MMOL/L (3.5-5.1); SODIUM LEVEL 139 MMOL/L (136-145); TOTAL PROTEIN 6.4 G/DL (5.7-8.2)
[2023-12-21 06:34] VITALS: TEMP 97.7
[2023-12-21 07:02] LABS: ATYPICAL LYMPH 1 % (0-5); EOSINOPHILS 2 % (0-3); LYMPHOCYTES 10 % (16-44); MONOCYTES 8 % (0-5); NEUTROPHILS 73 % (28-66)
[2023-12-21 07:03] LABS: MICROCYTOSIS 1+; PLATELET ESTIMATE NORMAL (NORMAL)
[2023-12-21] MEDS: cefTRIAXone SOD 1 GM in D5W MINI-BAG PLUS 50 ML IV SCH (09:32)
[2023-12-21] MEDS ORDERED: DOXY100C3 PO (10:10)
[2023-12-21 10:53] LABS: MUMPS VIRUS IgG ANTIBODY < 9.00 AU/mL (>10.99)
[2023-12-21 12:00] VITALS: BP 128/54; TEMP 97.8; O2SAT 79
== END 2023-12-21 14:55 | disposition home or self-care (01) ==
LOC: EDBD 18:45 → M ED 18:45 → M ED INP 12-20 01:16 → INTOOBSV 12-20 01:16 → M MS5PR 12-20 07:53
PROVIDERS: ADMIT Student in an Organized Health Care Education/Training Program; ATTEND Internal Medicine
DX: N45.1 Epididymitis (principal); A41.9 Sepsis, unspecified organism; D72.829 Elevated white blood cell count, unspecified
CPT/HCPCS: 36415; 74177; 76870; 80047; 80048; 80053; 80076; 81001; 83605; 83690; 85025; 86140; 86735; 86780; 87040; 87077; 87086; 87186; 87389; 87641; 87661; 87798; 87810; 87850; 93976; 96365; 96366; 96367; 96375; 96376; 99285; J0696; J1885; J2405; J2543

== ENCOUNTER 2023-12-27 07:40 | Inpatient (IN) | payer OTHER, MEDICAID ==
[~2023-12-27] VITALS: Ht 180.3 cm; Wt 86.5 kg
[~2023-12-27 07:40] MED LIST changes: +ACET-897 PO; +DOXY100C3 PO
[2023-12-27] MEDS: ENOXAPARIN 40MG/0.4ML SYRINGE (J1650 PER 10MG) SC SCH (09:00)
[2023-12-27] MEDS: ONDANSETRON 4MG 2ML VIAL IV ONE (09:03)
[2023-12-27] MEDS: KETOROLAC 30 MG/ML 1ML VIAL IV ONE (09:04)
[2023-12-27] MEDS: NS 1,000 ML IV ONE ×2 (09:05→12:07)
[2023-12-27 09:34] LABS: BASO # 0.1 10^3/uL (0.0-0.2); BASO % 0.2 % (0.0-1.0); HEMATOCRIT 42.7 % (42.0-52.0); LYMPH # 1.2 10^3/uL (1.5-5.0); MEAN CORPUSCULAR HEMOGLOBIN 26.8 pg (27.0-33.0); MEAN CORPUSCULAR HGB CONC 32.8 g/dl (32.0-36.5); MEAN CORPUSCULAR VOLUME 81.8 fl (80.0-96.0); MONO # 1.3 10^3/uL (0.0-0.8); MONO % 4.4 % (2.0-8.0); NEUTROPHILS # 26.2 10^3/uL (1.5-8.5); NEUTROPHILS % 87.6 % (36.0-66.0); PLATELET COUNT, AUTOMATED 320 10^3/uL (150-450); RED BLOOD COUNT 5.22 10^6/uL (4.30-6.10); WHITE BLOOD COUNT 29.9 10^3/uL (4.0-10.0)
[2023-12-27 09:40] LABS: AMORPHOUS SEDIMENT LARGE (NEGATIVE); APPEARANCE, URINE TURBID (CLEAR); BACTERIA, URINE AUTO NEGATIVE (NEGATIVE); BILIRUBIN, URINE AUTO NEGATIVE (NEGATIVE); BLOOD, URINE BLOOD 1+ (NEGATIVE); COLOR, URINE AMBER (YELLOW); GLUCOSE, URINE (UA) AUTO NEGATIVE (NEGATIVE); KETONE, URINE AUTO NEGATIVE (NEGATIVE); LEUKOCYTE ESTERASE, URINE AUTO NEGATIVE (NEGATIVE); MUCUS, URINE LARGE (NEGATIVE); NITRITE, URINE AUTO NEGATIVE (NEGATIVE); PROTEIN, URINE AUTO 1+ mg/dL (NEGATIVE); RBC, URINE AUTO 0 /HPF (0-3); SPECIFIC GRAVITY URINE AUTO 1.028 (1.002-1.035); SQUAMOUS EPITHELIAL CELL UR AU 0 /HPF (0-6); UROBILINOGEN, URINE AUTO 0.2 mg/dL (0.0-2.0); WBC, URINE AUTO 1 /HPF (0-3)
[2023-12-27 10:19] LABS: BLOOD UREA NITROGEN 16 MG/DL (9-23); CALCIUM LEVEL 9.6 MG/DL (8.5-10.1); CARBON DIOXIDE LEVEL 26 MMOL/L (20-31); CHLORIDE LEVEL 103 MMOL/L (98-107); CREATININE FOR GFR 0.98 MG/DL (0.70-1.30); GLOMERULAR FILTRATION RATE > 60.0 (>60); GLUCOSE, FASTING 106 MG/DL (60-100); SODIUM LEVEL 137 MMOL/L (136-145)
[2023-12-27] MEDS: LevoFLOXacin IV 750 MG in IV 1 EA IV ONE (10:44)
[2023-12-27] MEDS: ACETAMINOPHEN 325 MG TAB PO ONE (10:44)
[2023-12-27] MEDS ORDERED: DOXY100C3 PO (11:01)
[2023-12-27] MEDS ORDERED: HOME MED LIST COMPLETE! XX SCH (11:05)
[2023-12-27] MEDS ORDERED: MOM 30ML SUSPENSION UDC PO PRN (11:55)
[2023-12-27] MEDS ORDERED: MAALOX 30 ML SUSP *UDC PO PRN (11:55)
[2023-12-27 13:00] VITALS: BP 127/71; TEMP 98.1; O2SAT 97
[2023-12-27] MEDS: NS 1,000 ML IV SCH (13:37)
[2023-12-27] MEDS: KETOROLAC 30 MG/ML 1ML VIAL IV PRN (15:24)
[2023-12-27 20:00] VITALS: TEMP 101.4
[2023-12-27 20:28] VITALS: BP 102/57; TEMP 102.3; O2SAT 97
[2023-12-27] MEDS: ACETAMINOPHEN 500 MG TAB PO PRN (20:45)
[2023-12-27] MEDS: DOCUSATE SODIUM 100MG CAPSULE PO SCH (20:57)
[2023-12-27 22:12] VITALS: TEMP 100.1
[2023-12-28] VITALS (7 sets, daily range): BP systolic 93–120; BP diastolic 51–75; TEMP 96.8–101.4; O2SAT 94–95
[2023-12-28 06:35] LABS: MEAN CORPUSCULAR HEMOGLOBIN 26.9 pg (27.0-33.0); MEAN CORPUSCULAR HGB CONC 32.9 g/dl (32.0-36.5); PLATELET COUNT, AUTOMATED 253 10^3/uL (150-450); RED BLOOD COUNT 4.27 10^6/uL (4.30-6.10); WHITE BLOOD COUNT 38.1 10^3/uL (4.0-10.0)
[2023-12-28 06:36] LABS: HEMOGLOBIN 11.5 g/dl (13.5-17.5)
[2023-12-28 06:46] LABS: BLOOD UREA NITROGEN 13 MG/DL (9-23); CALCIUM LEVEL 8.7 MG/DL (8.5-10.1); CARBON DIOXIDE LEVEL 24 MMOL/L (20-31); CHLORIDE LEVEL 109 MMOL/L (98-107); CREATININE FOR GFR 0.92 MG/DL (0.70-1.30); GLOMERULAR FILTRATION RATE > 60.0 (>60); GLUCOSE, FASTING 98 MG/DL (60-100); SODIUM LEVEL 141 MMOL/L (136-145)
[2023-12-28 07:40] LABS: ATYPICAL LYMPH 3 % (0-5); EOSINOPHILS 1 % (0-3); LYMPHOCYTES 2 % (16-44); MONOCYTES 1 % (0-5); NEUTROPHILS 76 % (28-66)
[2023-12-28 07:42] LABS: PLATELET ESTIMATE NORMAL (NORMAL)
[2023-12-28] MEDS: LevoFLOXacin IV 750 MG in IV 1 EA IV SCH (09:15)
[2023-12-29] VITALS (8 sets, daily range): BP systolic 114–139; BP diastolic 67–84; TEMP 95.7–97.5; O2SAT 95–97
[2023-12-29 07:32] LABS: BASO % 0.2 % (0.0-1.0); EOS # 0.3 10^3/uL (0.0-0.5); EOS % 1.3 % (0.0-3.0); HEMOGLOBIN 11.8 g/dl (13.5-17.5); LYMPH % 7.5 % (24.0-44.0); MEAN CORPUSCULAR HEMOGLOBIN 26.2 pg (27.0-33.0); MEAN CORPUSCULAR HGB CONC 31.9 g/dl (32.0-36.5); MEAN CORPUSCULAR VOLUME 82.2 fl (80.0-96.0); MONO # 0.8 10^3/uL (0.0-0.8); MONO % 3.1 % (2.0-8.0); NEUTROPHILS # 22.7 10^3/uL (1.5-8.5); NEUTROPHILS % 85.8 % (36.0-66.0); PLATELET COUNT, AUTOMATED 288 10^3/uL (150-450); WHITE BLOOD COUNT 26.4 10^3/uL (4.0-10.0)
[2023-12-29 08:01] LABS: BLOOD UREA NITROGEN 11 MG/DL (9-23); CALCIUM LEVEL 8.6 MG/DL (8.5-10.1); CARBON DIOXIDE LEVEL 25 MMOL/L (20-31); CHLORIDE LEVEL 111 MMOL/L (98-107); CREATININE FOR GFR 0.86 MG/DL (0.70-1.30); GLOMERULAR FILTRATION RATE > 60.0 (>60); GLUCOSE, FASTING 75 MG/DL (60-100); POTASSIUM SERUM 3.8 MMOL/L (3.5-5.1); SODIUM LEVEL 142 MMOL/L (136-145)
[2023-12-30 05:18] VITALS: BP 109/70; TEMP 97.2; O2SAT 96
[2023-12-30 08:18] LABS: BASO # 0.1 10^3/uL (0.0-0.2); BASO % 0.6 % (0.0-1.0); EOS # 0.2 10^3/uL (0.0-0.5); HEMATOCRIT 35.8 % (42.0-52.0); HEMOGLOBIN 11.8 g/dl (13.5-17.5); LYMPH # 2.1 10^3/uL (1.5-5.0); LYMPH % 17.4 % (24.0-44.0); MEAN CORPUSCULAR HEMOGLOBIN 26.7 pg (27.0-33.0); MONO # 0.5 10^3/uL (0.0-0.8); MONO % 4.1 % (2.0-8.0); NEUTROPHILS # 8.5 10^3/uL (1.5-8.5); NEUTROPHILS % 70.7 % (36.0-66.0); PLATELET COUNT, AUTOMATED 316 10^3/uL (150-450); RED BLOOD COUNT 4.42 10^6/uL (4.30-6.10)
[2023-12-30] MEDS: LevoFLOXacin 750 MG TABLET PO SCH (08:19)
[2023-12-30 08:42] LABS: BLOOD UREA NITROGEN 9 MG/DL (9-23); CARBON DIOXIDE LEVEL 25 MMOL/L (20-31); CHLORIDE LEVEL 113 MMOL/L (98-107); CREATININE FOR GFR 0.87 MG/DL (0.70-1.30); GLOMERULAR FILTRATION RATE > 60.0 (>60); GLUCOSE, FASTING 86 MG/DL (60-100); MAGNESIUM LEVEL 1.8 MG/DL (1.8-2.4); POTASSIUM SERUM 3.9 MMOL/L (3.5-5.1); SODIUM LEVEL 143 MMOL/L (136-145)
[2023-12-30] MEDS ORDERED: LEVO1TAB40 PO (11:24)
[2023-12-30 12:44] VITALS: BP 132/85; TEMP 97; O2SAT 99
== END 2023-12-30 15:25 | disposition home or self-care (01) | DRG 501 ==
LOC: M ED 07:40 → M ED INP 11:52 → M MS5PR 13:01
PROVIDERS: ADMIT Family Medicine; ATTEND Hospitalist
DX: N45.3 Epididymo-orchitis (principal); F90.9 Attention-deficit hyperactivity disorder, unspecified type; N43.3 Hydrocele, unspecified; Z79.2 Long term (current) use of antibiotics

== ENCOUNTER → 2024-03-08 | Outpatient (REF) | payer OTHER ==
[~2024-03-08] MED LIST changes: -DOXY-323 PO; +DOXY-441 PO; +LEVO1TAB40 PO
== END ==
LOC: M SMT 13:55
PROVIDERS: ATTEND Urology
DX: Z30.2 Encounter for sterilization (principal)

== ENCOUNTER → 2024-03-17 | Outpatient (REF) | payer OTHER ==
[2024-03-17 11:54] LABS: APPEARANCE, URINE CLEAR (CLEAR); BACTERIA, URINE AUTO NEGATIVE (NEGATIVE); BILIRUBIN, URINE AUTO NEGATIVE (NEGATIVE); BLOOD, URINE BLOOD NEGATIVE (NEGATIVE); COLOR, URINE YELLOW (YELLOW); GLUCOSE, URINE (UA) AUTO NEGATIVE (NEGATIVE); KETONE, URINE AUTO NEGATIVE (NEGATIVE); LEUKOCYTE ESTERASE, URINE AUTO NEGATIVE (NEGATIVE); MUCUS, URINE SMALL (NEGATIVE); NITRITE, URINE AUTO NEGATIVE (NEGATIVE); PROTEIN, URINE AUTO NEGATIVE (NEGATIVE); RBC, URINE AUTO 0 /HPF (0-3); SQUAMOUS EPITHELIAL CELL UR AU 0 /HPF (0-6); UROBILINOGEN, URINE AUTO 0.2 mg/dL (0.0-2.0); WBC, URINE AUTO 1 /HPF (0-3)
== END ==
LOC: M SMT 10:19
PROVIDERS: ATTEND Physician Assistant
DX: N50.811 Right testicular pain (principal)

== ENCOUNTER 2024-08-31 10:19 | Emergency (ER) | payer OTHER ==
[~2024-08-31] VITALS: Ht 177.8 cm; Wt 87.0 kg
[~2024-08-31 10:19] MED LIST changes: -FLOM0.4C39 PO; +TAMS-18 PO
[2024-08-31 11:46] LABS: BASO % 0.2 % (0.0-1.0); EOS # 0.2 10^3/uL (0.0-0.5); EOS % 2.3 % (0.0-3.0); HEMATOCRIT 47.6 % (42.0-52.0); HEMOGLOBIN 15.4 g/dl (13.5-17.5); LYMPH # 1.8 10^3/uL (1.5-5.0); LYMPH % 19.8 % (24.0-44.0); MEAN CORPUSCULAR HEMOGLOBIN 26.7 pg (27.0-33.0); MEAN CORPUSCULAR HGB CONC 32.4 g/dl (32.0-36.5); MEAN CORPUSCULAR VOLUME 82.6 fl (80.0-96.0); MONO # 0.6 10^3/uL (0.0-0.8); MONO % 7.1 % (2.0-8.0); NEUTROPHILS # 6.3 10^3/uL (1.5-8.5); NEUTROPHILS % 70.2 % (36.0-66.0); PLATELET COUNT, AUTOMATED 232 10^3/uL (150-450); RED BLOOD COUNT 5.76 10^6/uL (4.30-6.10)
[2024-08-31] MEDS: MORPHINE 2 MG/ML 1ML VIAL IV PRN (12:34)
[2024-08-31] MEDS: ONDANSETRON 4MG 2ML VIAL IV ONE (12:34)
[2024-08-31 13:25] LABS: LIPASE 32 U/L (12-53)
[2024-08-31 13:29] LABS: ALKALINE PHOSPHATASE 68 U/L (40-129); ALT/SGPT 47 U/L (7.0-40); AST/SGOT 26 U/L (<34); BILIRUBIN,DIRECT 0.2 MG/DL (<0.4); BILIRUBIN,TOTAL 0.6 MG/DL (0.3-1.2); BLOOD UREA NITROGEN 9 MG/DL (9-23); CALCIUM LEVEL 9.4 MG/DL (8.5-10.1); CARBON DIOXIDE LEVEL 28 MMOL/L (20-31); CHLORIDE LEVEL 106 MMOL/L (98-107); CREATININE FOR GFR 0.73 MG/DL (0.70-1.30); GLOMERULAR FILTRATION RATE > 90.0 (>60); GLUCOSE, FASTING 95 MG/DL (60-100); SODIUM LEVEL 144 MMOL/L (136-145); TOTAL PROTEIN 6.9 G/DL (5.7-8.2)
[2024-08-31] MEDS ORDERED: IBUP80TA PO (14:19)
[2024-08-31 14:34] VITALS: BP 131/84; TEMP 97.9; O2SAT 98
== END 2024-08-31 14:47 | disposition home or self-care (01) ==
LOC: M ED 10:19
DX: N20.0 Calculus of kidney (principal); F32.A Depression, unspecified; F41.9 Anxiety disorder, unspecified; Z87.442 Personal history of urinary calculi; Z79.1 Long term (current) use of non-steroidal anti-inflammatories (NSAID)
CPT/HCPCS: 74176; 80048; 80076; 83690; 85025; 96374; 96375; 99284; J2405

== ENCOUNTER 2024-10-29 11:36 | Emergency (ER) | payer OTHER ==
[~2024-10-29] VITALS: Ht 180.3 cm; Wt 85.6 kg
[2024-10-29 12:23] LABS: KETONE, URINE AUTO RFX NEGATIVE (NEGATIVE); MUCUS, URINE RFX SMALL (NEGATIVE); RBC, URINE AUTO RFX 104 /HPF (0-3); SQUAM EPITHELIAL CELL UR AURFX 3 /HPF (0-6)
[2024-10-29 12:25] LABS: LEUKOCYTE ESTERASE UR AUTO RFX 3+ (NEGATIVE); NITRITE, URINE AUTO RFX POSITIVE (NEGATIVE); WBC, URINE AUTO RFX TNTC /HPF (0-3)
[2024-10-29] MEDS: cefTRIAXone SOD 1 GM in DEXTROSE 5% (D5W) ADV/MINI-BAG 50 ML IV ONE (12:36)
[2024-10-29 12:38] LABS: BASO # 0.0 10^3/uL (0.0-0.2); BASO % 0.4 % (0.0-1.0); EOS # 0.2 10^3/uL (0.0-0.5); EOS % 3.5 % (0.0-3.0); LYMPH # 1.3 10^3/uL (1.5-5.0); LYMPH % 22.8 % (24.0-44.0); MONO # 0.5 10^3/uL (0.0-0.8); MONO % 9.0 % (2.0-8.0); NEUTROPHILS # 3.6 10^3/uL (1.5-8.5); NEUTROPHILS % 63.6 % (36.0-66.0); PLATELET COUNT, AUTOMATED 182 10^3/uL (150-450)
[2024-10-29 12:46] LABS: CALCIUM LEVEL 9.4 MG/DL (8.5-10.1); CARBON DIOXIDE LEVEL 28 MMOL/L (20-31); CHLORIDE LEVEL 108 MMOL/L (98-107); CREATININE FOR GFR 0.90 MG/DL (0.70-1.30); GLOMERULAR FILTRATION RATE > 90.0 (>60); POTASSIUM SERUM 4.1 MMOL/L (3.5-5.1); SODIUM LEVEL 144 MMOL/L (136-145)
[2024-10-29] MEDS: ONDANSETRON 4MG 2ML VIAL IV ONE (12:56)
[2024-10-29] MEDS: NS (Normal Saline) 0.9% 1,000 ML IV ONE (12:57)
[2024-10-29] MEDS: ACETAMINOPHEN *IV* 1,000 MG in IV 1 EA IV ONE (12:57)
[2024-10-29 14:02] VITALS: BP 110/68
[2024-10-29] MEDS ORDERED: KETO-204 PO (14:14)
[2024-10-29] MEDS ORDERED: CIPR-249 PO (14:14)
[2024-10-29 14:21] VITALS: O2SAT 96
[2024-10-29 14:38] VITALS: TEMP 97.9
== END 2024-10-29 15:08 | disposition home or self-care (01) ==
LOC: M ED 11:36
DX: R10.9 Unspecified abdominal pain (principal); N39.0 Urinary tract infection, site not specified; N20.0 Calculus of kidney; Z87.442 Personal history of urinary calculi; Z79.2 Long term (current) use of antibiotics; Z79.1 Long term (current) use of non-steroidal anti-inflammatories (NSAID)
CPT/HCPCS: 74176; 80048; 81001; 85025; 87088; 87186; 96365; 96375; 99284; J0131; J0696; J2405; J3010

== ENCOUNTER 2025-02-02 09:10 | Emergency (ER) | payer OTHER ==
[~2025-02-02] VITALS: Ht 180.3 cm; Wt 87.5 kg
[~2025-02-02 09:10] MED LIST changes: +KETO-204 PO
[2025-02-02 10:00] VITALS: BP 122/74
[2025-02-02] MEDS ORDERED: KETO-204 PO (10:00)
[2025-02-02] MEDS ORDERED: AMOX875T2 PO (10:00)
[2025-02-02 10:10] VITALS: O2SAT 98
[2025-02-02] MEDS: ACETAMINOPHEN 500 MG TAB PO ONE (10:14)
[2025-02-02 10:15] VITALS: TEMP 96.5
== END 2025-02-02 10:15 | disposition home or self-care (01) ==
LOC: M ED 09:10
DX: K08.89 Other specified disorders of teeth and supporting structures (principal); Z79.2 Long term (current) use of antibiotics; Z79.1 Long term (current) use of non-steroidal anti-inflammatories (NSAID)

== ENCOUNTER 2025-02-14 13:28 | Emergency (ER) | payer OTHER ==
[~2025-02-14] VITALS: Ht 180.3 cm; Wt 88.6 kg
[2025-02-14 16:06] LABS: KETONE, URINE AUTO RFX NEGATIVE (NEGATIVE); NITRITE, URINE AUTO RFX NEGATIVE (NEGATIVE); RBC, URINE AUTO RFX TNTC /HPF (0-3); SQUAM EPITHELIAL CELL UR AURFX 2 /HPF (0-6)
[2025-02-14 16:08] LABS: LEUKOCYTE ESTERASE UR AUTO RFX 1+ (NEGATIVE); WBC, URINE AUTO RFX 103 /HPF (0-3)
[2025-02-14] MEDS: KETOROLAC 30 MG/ML 1 ML VIAL IV ONE (16:59)
[2025-02-14] MEDS: NS (Normal Saline) 0.9% 1,000 ML IV ONE (16:59)
[2025-02-14 17:18] LABS: BASO # 0.0 10^3/uL (0.0-0.2); BASO % 0.3 % (0.0-1.0); EOS # 0.2 10^3/uL (0.0-0.5); EOS % 2.1 % (0.0-3.0); LYMPH # 1.8 10^3/uL (1.5-5.0); LYMPH % 19.0 % (24.0-44.0); MONO # 0.4 10^3/uL (0.0-0.8); MONO % 4.4 % (2.0-8.0); NEUTROPHILS # 6.8 10^3/uL (1.5-8.5); NEUTROPHILS % 73.4 % (36.0-66.0); PLATELET COUNT, AUTOMATED 254 10^3/uL (150-450)
[2025-02-14 17:27] LABS: ALT/SGPT 62 U/L (7.0-40); AST/SGOT 32 U/L (<34); CALCIUM LEVEL 10.0 MG/DL (8.5-10.1); CARBON DIOXIDE LEVEL 29 MMOL/L (20-31); CHLORIDE LEVEL 103 MMOL/L (98-107); CREATININE FOR GFR 0.96 MG/DL (0.70-1.30); GLOMERULAR FILTRATION RATE > 90.0 (>60); POTASSIUM SERUM 4.4 MMOL/L (3.5-5.1); SODIUM LEVEL 143 MMOL/L (136-145)
[2025-02-14] MEDS ORDERED: ISOVUE-370 76% 100 ML VIAL As Ordered ONE (17:50)
[2025-02-14 18:26] VITALS: BP 136/76; TEMP 98.1; O2SAT 99
[2025-02-14] MEDS ORDERED: CIPR500T39 PO (19:48)
== END 2025-02-14 19:57 | disposition home or self-care (01) ==
LOC: M ED 13:28
DX: N30.01 Acute cystitis with hematuria (principal); K74.60 Unspecified cirrhosis of liver; K40.20 Bilateral inguinal hernia, without obstruction or gangrene, not specified as recurrent; Z87.442 Personal history of urinary calculi; Z79.2 Long term (current) use of antibiotics; Z79.899 Other long term (current) drug therapy
CPT/HCPCS: 74177; 80053; 81001; 83605; 85025; 87088; 87186; 96374; 99284; J1885; Q9967

== ENCOUNTER → 2025-03-02 | Outpatient (REF) | payer OTHER ==
[~2025-03-02] MED LIST changes: +CIPR500T39 PO
[2025-03-02 17:40] LABS: APPEARANCE, URINE CLEAR (CLEAR); BACTERIA, URINE AUTO 1+ (NEGATIVE); BILIRUBIN, URINE AUTO NEGATIVE (NEGATIVE); BLOOD, URINE BLOOD NEGATIVE (NEGATIVE); GLUCOSE, URINE (UA) AUTO NEGATIVE (NEGATIVE); KETONE, URINE AUTO NEGATIVE (NEGATIVE); LEUKOCYTE ESTERASE, URINE AUTO 2+ (NEGATIVE); MUCUS, URINE SMALL (NEGATIVE); NITRITE, URINE AUTO NEGATIVE (NEGATIVE); PROTEIN, URINE AUTO NEGATIVE (NEGATIVE); RBC, URINE AUTO 3 /HPF (0-3); SPECIFIC GRAVITY URINE AUTO 1.016 (1.002-1.035); SQUAMOUS EPITHELIAL CELL UR AU 0 /HPF (0-6); TRANSITIONAL EPITHELIAL AUTO <1 /HPF; UROBILINOGEN, URINE AUTO 0.2 mg/dL (0.0-2.0); WBC, URINE AUTO 72 /HPF (0-3)
== END ==
LOC: M SMT 16:50
PROVIDERS: ATTEND Physician Assistant
DX: R31.0 Gross hematuria (principal)

== ENCOUNTER → 2025-04-04 | Outpatient (REF) | payer OTHER ==
[~2025-04-04] MED LIST changes: +TAMS1CAP17 PO
[2025-04-04 13:12] LABS: APPEARANCE, URINE HAZY (CLEAR); BACTERIA, URINE AUTO 2+ (NEGATIVE); BILIRUBIN, URINE AUTO NEGATIVE (NEGATIVE); BLOOD, URINE BLOOD NEGATIVE (NEGATIVE); GLUCOSE, URINE (UA) AUTO NEGATIVE (NEGATIVE); KETONE, URINE AUTO NEGATIVE (NEGATIVE); LEUKOCYTE ESTERASE, URINE AUTO 2+ (NEGATIVE); MUCUS, URINE SMALL (NEGATIVE); NITRITE, URINE AUTO POSITIVE (NEGATIVE); PROTEIN, URINE AUTO NEGATIVE (NEGATIVE); RBC, URINE AUTO 7 /HPF (0-3); SPECIFIC GRAVITY URINE AUTO 1.021 (1.002-1.035); SQUAMOUS EPITHELIAL CELL UR AU 3 /HPF (0-6); UROBILINOGEN, URINE AUTO 0.2 mg/dL (0.0-2.0); WBC, URINE AUTO 32 /HPF (0-3)
== END ==
LOC: M SMT 12:42
PROVIDERS: ATTEND Physician Assistant
DX: Z01.818 Encounter for other preprocedural examination (principal)

== ENCOUNTER → 2025-04-04 | Outpatient (CLI) | payer OTHER | LOC: M RAD 13:05 | PROVIDERS: ATTEND Physician Assistant | DX: Z01.818 Encounter for other preprocedural examination (principal) ==

== ENCOUNTER → 2025-04-08 | Outpatient (CLI) | payer OTHER ==
[2025-04-08 13:39] LABS: PLATELET COUNT, AUTOMATED 226 10^3/uL (150-450)
[2025-04-08 14:11] LABS: CALCIUM LEVEL 9.4 MG/DL (8.5-10.1); CARBON DIOXIDE LEVEL 27 MMOL/L (20-31); CHLORIDE LEVEL 106 MMOL/L (98-107); CREATININE FOR GFR 0.90 MG/DL (0.70-1.30); GLOMERULAR FILTRATION RATE > 90.0 (>60); POTASSIUM SERUM 4.1 MMOL/L (3.5-5.1); SODIUM LEVEL 142 MMOL/L (136-145)
== END ==
LOC: M LAB 13:18
PROVIDERS: ATTEND Physician Assistant
DX: Z01.818 Encounter for other preprocedural examination (principal)

== ENCOUNTER 2025-04-13 11:03 | Day surgery (SDC) | payer OTHER ==
[~2025-04-13] VITALS: Ht 180.3 cm; Wt 84.4 kg
[~2025-04-13 11:03] MED LIST changes: +LIDOCAINE 2% 100 MG/5 ML SDV (FOR ANES.) As Ordered ONE; +MIDAZOLAM INJ 2 MG/2 ML VIAL As Ordered ONE; +ONDANSETRON 4MG/2ML VIAL As Ordered ONE
[2025-04-13] MEDS: ceFAZolin SOD 2 GM IV ONCE IV ONE (11:38)
[2025-04-13] MEDS ORDERED: ACETAMINOPHEN 1000MG/100ML IV BAG As Ordered ONE (11:58)
[2025-04-13] MEDS: ISOVUE-300 61% 100 ML VIAL As Ordered ONE (12:08)
[2025-04-13] MEDS ORDERED: LR 1,000 ML IV SCH (12:20)
[2025-04-13] MEDS ORDERED: ONDANSETRON 4MG/2ML VIAL IV PRN (12:20)
[2025-04-13] MEDS ORDERED: HYDROMORPHONE HCL 0.5 MG/0.5 ML SYRINGE IV PRN (12:20)
[2025-04-13] MEDS ORDERED: TAMS1CAP17 PO (12:50)
[2025-04-13] MEDS ORDERED: OXYC1TAB23 PO (12:50)
[2025-04-13 13:55] VITALS: BP 119/70; O2SAT 98
== END 2025-04-13 14:11 | disposition home or self-care (01) ==
LOC: M SDC 11:03
PROVIDERS: ATTEND Urology
DX: N13.2 Hydronephrosis with renal and ureteral calculous obstruction (principal); F90.9 Attention-deficit hyperactivity disorder, unspecified type; Z87.442 Personal history of urinary calculi; Z79.899 Other long term (current) drug therapy
CPT/HCPCS: 52351; 74420; J0131; J0688; J2250; J2405; J3010; Q9967